=== PATIENT | female | born 1935 | race Caucasian/White ===

== ENCOUNTER 2016-06-18 16:58 | Emergency (ER) | payer OTHER ==
[~2016-06-18] VITALS: Ht 167.6 cm; Wt 77.0 kg
[~2016-06-18 16:58] MED LIST: ADVA250A INH; ARIP2 PO; CO Q200C3 PO; CORE25TA PO; CYMB30CA PO; ECOT81TA2 PO; FURO20TA PO; ISOS60 PO; LINA290C PO; LORTA10 PO; MEDR4PAK3 PO; NITR0.4S SL; POTA-267 PO; ROPI.25 PO; ROSU20 PO; TEKT300T PO; TEMA15 PO; VALI5TAB PO
[2016-06-18 17:15] VITALS: BP 149/70; PULSE 74; RESP 18; TEMP 98.5; O2SAT 98
--- NOTE | 2016-06-18 17:20 | PD ---
HPI Chief Complaint: psych Time Seen by Provider: 17:19 Travel History International Travel<30 days: No Contact w/Intl Traveler<30days: No Traveled to known affect area: No History of Present Illness HPI 80-year-old female with history of CVA, CAD, stent placement 4, hypertension, COPD, presents to emergency department under a Anders act for psychiatric evaluation. Patient states that she lost her in February and has been significantly depressed since then. She resides with her son. She states that she gets very lonely and wants him home. She contacted him today asking him to come home and he became angry. She states that they had an argument and he misunderstood her when she said she just wanted it all to end. She claims that he assumed she wanted to hurt himself. She states she was just tired of the fighting. She denies any suicidal homicidal ideations. States that she does not take anything for her depression. She has no other symptoms to report at this time. [facility] Past Medical History Arthritis: Yes Asthma: Yes Autoimmune Disease: No Blood Disorders: No Anxiety: Yes Depression: Yes Heart Rhythm Problems: No Cancer: No Cardiac Catheterization: Yes Cardiovascular Problems: Yes (HTN) High Cholesterol: Yes Chemotherapy: No Chest Pain: Yes Congestive Heart Failure: No COPD: Yes Coronary Artery Disease: Yes Diabetes: No Diminished Hearing: No Endocrine: No Gastrointestinal Disorders: Yes GERD: Yes Genitourinary: No Headaches: No Hiatal Hernia: Yes Hypertension: Yes Immune Disorder: No Implanted Vascular Access Dvce: No Kidney Stones: No Musculoskeletal: Yes Neurologic: Yes (TREMORS) Psychiatric: No Reproductive: No Respiratory: Yes Immunizations Current: No Migraines: No Myocardial Infarction: Yes (2011) Radiation Therapy: No Renal Failure: No Seizures: No Sickle Cell Disease: No Sleep Apnea: No Thyroid Disease: No Ulcer: No PNEUMOCCOCAL Vaccine (Year): 2 Menopausal: Yes Past Surgical History Abdominal Surgery: No AICD: No Arteriovenous Shunt: No Body Medical Devices: HEART START Cardiac Surgery: Yes (CARDIAC STENT-2005 / STENTS x4 JULY 2011) Coronary Artery Bypass Graft: No Coronary Stent: Yes Ear Surgery: No Endocrine Surgery: No Eye Surgery: Yes (BILAT. CATARACT REMOVAL) Genitourinary Surgery: No Gynecologic Surgery: Yes (HYSTERCTOMY ) Hysterectomy: Yes (PARTIAL THEN COMPLETE) Insulin Pump: No Joint Replacement: No Neurologic Surgery: No Oral Surgery: No Pacemaker: No Thoracic Surgery: No Other Surgery: Yes (BREAST BX) Social History Alcohol Use: No Tobacco Use: No Substance Use: No Allergies-Medications (Allergen,Severity, Reaction): Coded Allergies: E-Mycin (Verified Allergy, Severe, RASH, 06/18/16) Reglan (Verified Allergy, Severe, Rash, 06/18/16) Sulfa (Verified Allergy, Severe, RASH, 06/18/16) Zanaflex (Verified Allergy, Severe, Rash, 06/18/16) Codeine (Verified Allergy, Unknown, 06/18/16) PT DOESNT KNOW WHY, BECAUSE SHE DOES NOT KNOW WHAT IT IS, IS ON HYDROCODONE AND LORTABS AT HOME Zocor (Verified Allergy, Unknown, 06/18/16) Uncoded Allergies: hydrocolliod dressing (Adverse Reaction, Severe, 05/12/13) Reported Meds & Prescriptions Reported Meds & Active Scripts Active Reported Restoril (Temazepam) 15 Mg Cap 15 Mg PO HS PRN Crestor (Rosuvastatin Calcium) 10 Mg Tab 10 Mg PO HS Requip (Ropinirole HCl) 0.25 Mg Tab 0.25 Mg PO HS Klor-Con 10 (Potassium Chloride) 10 Meq Tab 10 Meq PO DAILY Nitrostat SL (Nitroglycerin) 0.4 Mg Subl 0.4 Mg SL DIRECTED PRN 1 tablet under the tongue as needed for chest pain. Repeat every 5 minutes for a total of 3 DOSES or call 911 if NO relief. Linzess (Linaclotide) 290 Mcg Cap 290 Mcg PO DAILY Isosorbide Mononitrate ER (Isosorbide Mononitrate) 60 Mg Tab 60 Mg PO DAILY Lasix (Furosemide) 20 Mg Tab 20 Mg PO DAILY Breo Ellipta Inh (Fluticasone/Vilanterol) 100-25 Mcg/Act Inh 1 Puff INH DAILY Use daily at the same time. Coreg (Carvedilol) 25 Mg Tab 25 Mg PO DAILY Aspirin Adult Low Strength (Aspirin) 81 Mg Tabdr 243 Mg PO DAILY Review of Systems Except as stated in HPI: all other systems reviewed are Neg Physical Exam Narrative GENERAL: Well-nourished elderly female patient, tearful but in no acute distress SKIN: Focused skin assessment warm/dry. HEAD: Atraumatic. Normocephalic. EYES: Pupils equal and round. No scleral icterus. No injection or drainage. ENT: No nasal bleeding or discharge. Mucous membranes pink and moist. NECK: Trachea midline. No JVD. CARDIOVASCULAR: Regular rate and rhythm. No murmur appreciated. RESPIRATORY: No accessory muscle use. Clear to auscultation. Breath sounds equal bilaterally. GASTROINTESTINAL: Abdomen soft, non-tender, nondistended. Hepatic and splenic margins not palpable. MUSCULOSKELETAL: No obvious deformities. No clubbing. No cyanosis. No edema. NEUROLOGICAL: Awake and alert. No obvious cranial nerve deficits. Motor grossly within normal limits. Normal speech. PSYCHIATRIC: Appropriate mood and affect; insight and judgment normal. Data Data Last Documented VS Vital Signs Date Time Temp Pulse Resp B/P Pulse Ox O2 Delivery O2 Flow Rate FiO2 06/18/16 19:24 98.4 65 16 133/72 97 Room Air Orders Complete Blood Count With Diff (06/18/16 17:29) Basic Metabolic Panel (Bmp) (06/18/16 17:29) Urinalysis - C+S If Indicated (06/18/16 17:29) Psych Screen (06/18/16 17:29) Drug Screen, Random Urine (06/18/16 17:29) Alcohol (Ethanol) (06/18/16 17:29) Potassium Chloride (Kcl) (06/18/16 19:15) Labs Laboratory Tests Test 06/18/16 06/18/16 17:40 19:05 White Blood Count 6.0 TH/MM3 Red Blood Count 4.57 MIL/MM3 Hemoglobin 13.6 GM/DL Hematocrit 41.1 % Mean Corpuscular Volume 89.9 FL Mean Corpuscular Hemoglobin 29.8 PG Mean Corpuscular Hemoglobin 33.2 % Concent Red Cell Distribution Width 13.8 % Platelet Count 233 TH/MM3 Mean Platelet Volume 7.4 FL Neutrophils (%) (Auto) 83.9 % Lymphocytes (%) (Auto) 12.4 % Monocytes (%) (Auto) 3.2 % Eosinophils (%) (Auto) 0.3 % Basophils (%) (Auto) 0.2 % Neutrophils # (Auto) 5.0 TH/MM3 Lymphocytes # (Auto) 0.7 TH/MM3 Monocytes # (Auto) 0.2 TH/MM3 Eosinophils # (Auto) 0.0 TH/MM3 Basophils # (Auto) 0.0 TH/MM3 CBC Comment DIFF FINAL Differential Comment Sodium Level 139 MEQ/L Potassium Level 3.2 MEQ/L Chloride Level 101 MEQ/L Carbon Dioxide Level 29.7 MEQ/L Anion Gap 8 MEQ/L Blood Urea Nitrogen 29 MG/DL Creatinine 1.04 MG/DL Estimat Glomerular Filtration 51 ML/MIN Rate Random Glucose 140 MG/DL Calcium Level 9.1 MG/DL Ethyl Alcohol Level LESS THAN 3 MG/DL Urine Color YELLOW Urine Turbidity CLEAR Urine pH 6.0 Urine Specific [place] 1.011 Urine Protein NEG mg/dL Urine Glucose (UA) NEG mg/dL Urine Ketones NEG mg/dL Urine Occult Blood NEG Urine Nitrite NEG Urine Bilirubin NEG Urine Urobilinogen LESS THAN 2.0 MG/DL Urine Leukocyte Esterase NEG Urine RBC 1 /hpf Urine WBC LESS THAN 1 /hpf Urine Squamous Epithelial 1 /hpf Cells Urine Hyaline Casts 5 /lpf Microscopic Urinalysis Comment CULT NOT INDICATED Urine Opiates Screen NEG Urine Barbiturates Screen NEG Urine Amphetamines Screen NEG Urine Benzodiazepines Screen NEG Urine Cocaine Screen NEG Urine Cannabinoids Screen NEG MDM Medical Decision Making Medical Screen Exam Complete: Yes Emergency Medical Condition: Yes Medical Record Reviewed: Yes Differential Diagnosis Mood disorder versus personality disorder versus adjustment reaction disorder Narrative Course 80 year-old female presents to the emergency department under a Anders act for psychiatric evaluation. Patient appears without distress. She is cheerful and verbalizes depression following her 's in February of this year. She denies suicidal or homicidal ideations. CBC is without acute concern. BMP is with hypokalemia 3.2. This is repleted here in the emergency department. BUN is 29, creatinine 1.04. Patient is encouraged to take by mouth fluids. She is tolerating this. Urinalysis is unremarkable. Patient states she is currently being treated for UTI and has one dose of antibiotics left. EtOH is less than 3. Toxicology is pending. Patient is medically cleared to undergo psychiatric screening for further evaluation and disposition. 2119 Psychiatric screen is complete. Pt is increasingly anxious and restless. I discussed with Dr. Puentes; old EKG is reviewed. Pt will be given haldol IM. Diagnosis Primary Impression: Adjustment disorder with mixed anxiety and depressed mood Condition: Stable Whitney Marinelli Jun 18, 2016 17:20
[2016-06-18 17:25] VITALS: BP 149/70; PULSE 67; RESP 18; O2SAT 98
[2016-06-18 17:49] LABS: BASOPHIL % 0.2 % (0.0-2.0); EOSINOPHIL % 0.3 % (0.0-4.0); HEMATOCRIT 41.1 % (35.0-46.0); HEMO FLAGS DIFF FINAL; LYMPH % 12.4 % (9.0-44.0); LYMPHOCYTE # 0.7 TH/MM3 (1.0-4.8); MEAN CELL VOLUME 89.9 FL (80.0-100.0); MEAN CORPUSCULAR HEMOGLOBIN 29.8 PG (27.0-34.0); MEAN CORPUSCULAR HGB CONC 33.2 % (32.0-36.0); MONO % 3.2 % (0.0-8.0); NEUT % 83.9 % (16.0-70.0); PLATELET COUNT 233 TH/MM3 (150-450); RED BLOOD COUNT 4.57 MIL/MM3 (4.00-5.30); RED CELL DISTRIBUTION WIDTH 13.8 % (11.6-17.2)
[2016-06-18] MEDS ORDERED: LINA290C PO (18:07)
[2016-06-18] MEDS ORDERED: REST15CA PO (18:07)
[2016-06-18] MEDS ORDERED: ROPI.25 PO (18:07)
[2016-06-18] MEDS ORDERED: POTA-243 PO (18:07)
[2016-06-18] MEDS ORDERED: FLUT1INH INH (18:07)
[2016-06-18] MEDS ORDERED: NITR0.4S SL (18:07)
[2016-06-18] MEDS ORDERED: ASPI1TAB91 PO (18:07)
[2016-06-18] MEDS ORDERED: CORE25TA PO (18:07)
[2016-06-18] MEDS ORDERED: FURO1TAB62 PO (18:07)
[2016-06-18] MEDS ORDERED: ISOS60TA PO (18:07)
[2016-06-18] MEDS ORDERED: ROSU10 PO (18:07)
[2016-06-18 18:14] LABS: ANION GAP 8 MEQ/L (5-15); BICARBONATE 29.7 MEQ/L (21.0-32.0); BLOOD UREA NITROGEN 29 MG/DL (7-18); CHLORIDE 101 MEQ/L (98-107); GLOMERULAR FILTRATION RATE 51 ML/MIN (>89); POTASSIUM 3.2 MEQ/L (3.5-5.1); SODIUM (NA) 139 MEQ/L (136-145)
[2016-06-18] MEDS ORDERED: POTASSIUM CHLORIDE 20 MEQ CONTROLLED RELEASE TAB PO ONE (19:15)
[2016-06-18 19:24] VITALS: BP 133/72; PULSE 65; RESP 16; TEMP 98.4; O2SAT 97
[2016-06-18 19:42] LABS: AMPHETAMINE, URINE NEG (NEG); BARBITURATES, URINE NEG (NEG); COCAINE, URINE NEG (NEG)
[2016-06-18 19:50] LABS: BLOOD, URINE NEG (NEG); COMMENT (UR) CULT NOT INDICATED; CULTURE IF INDICATED CULT NOT INDICATED; GLUCOSE,URINE NEG (NEG); HYALINE CAST, URINE 5 /lpf (RARE); KETONE, URINE NEG (NEG); NITRITE,URINE NEG (NEG); SQUAMOUS EPITHELIAL CELL URINE 1 /hpf (0-5); URINE COLOR YELLOW (YELLW/STRAW)
[2016-06-18] MEDS ORDERED: HALOPERIDOL LACTATE 5 MG/ML AMP IM ONE (21:30)
[2016-06-18] MEDS ORDERED: TEMAZEPAM 15 MG CAP PO ONE (21:45)
[2016-06-19 05:58] VITALS: BP 129/72; PULSE 80; RESP 18; O2SAT 97
[2016-06-19 07:28] VITALS: BP 158/76; PULSE 61; RESP 20; TEMP 98.7; O2SAT 99
--- NOTE | 2016-06-19 12:05 | PD ---
Data Data Last Documented VS Vital Signs Date Time Temp Pulse Resp B/P Pulse Ox O2 Delivery O2 Flow Rate FiO2 06/19/16 07:28 98.7 61 20 158/76 99 Room Air Orders Complete Blood Count With Diff (06/18/16 17:29) Basic Metabolic Panel (Bmp) (06/18/16 17:29) Urinalysis - C+S If Indicated (06/18/16 17:29) Psych Screen (06/18/16 17:29) Drug Screen, Random Urine (06/18/16 17:29) Alcohol (Ethanol) (06/18/16 17:29) Potassium Chloride (Kcl) (06/18/16 19:15) Haloperidol Inj (Haldol Inj) (06/18/16 21:30) Temazepam (Restoril) (06/18/16 21:45) Diet Regular Basic (06/19/16 Breakfast) Labs Laboratory Tests Test 06/18/16 06/18/16 17:40 19:05 White Blood Count 6.0 TH/MM3 Red Blood Count 4.57 MIL/MM3 Hemoglobin 13.6 GM/DL Hematocrit 41.1 % Mean Corpuscular Volume 89.9 FL Mean Corpuscular Hemoglobin 29.8 PG Mean Corpuscular Hemoglobin 33.2 % Concent Red Cell Distribution Width 13.8 % Platelet Count 233 TH/MM3 Mean Platelet Volume 7.4 FL Neutrophils (%) (Auto) 83.9 % Lymphocytes (%) (Auto) 12.4 % Monocytes (%) (Auto) 3.2 % Eosinophils (%) (Auto) 0.3 % Basophils (%) (Auto) 0.2 % Neutrophils # (Auto) 5.0 TH/MM3 Lymphocytes # (Auto) 0.7 TH/MM3 Monocytes # (Auto) 0.2 TH/MM3 Eosinophils # (Auto) 0.0 TH/MM3 Basophils # (Auto) 0.0 TH/MM3 CBC Comment DIFF FINAL Differential Comment Sodium Level 139 MEQ/L Potassium Level 3.2 MEQ/L Chloride Level 101 MEQ/L Carbon Dioxide Level 29.7 MEQ/L Anion Gap 8 MEQ/L Blood Urea Nitrogen 29 MG/DL Creatinine 1.04 MG/DL Estimat Glomerular Filtration 51 ML/MIN Rate Random Glucose 140 MG/DL Calcium Level 9.1 MG/DL Ethyl Alcohol Level LESS THAN 3 MG/DL Urine Color YELLOW Urine Turbidity CLEAR Urine pH 6.0 Urine Specific [place] 1.011 Urine Protein NEG mg/dL Urine Glucose (UA) NEG mg/dL Urine Ketones NEG mg/dL Urine Occult Blood NEG Urine Nitrite NEG Urine Bilirubin NEG Urine Urobilinogen LESS THAN 2.0 MG/DL Urine Leukocyte Esterase NEG Urine RBC 1 /hpf Urine WBC LESS THAN 1 /hpf Urine Squamous Epithelial 1 /hpf Cells Urine Hyaline Casts 5 /lpf Microscopic Urinalysis Comment CULT NOT INDICATED Urine Opiates Screen NEG Urine Barbiturates Screen NEG Urine Amphetamines Screen NEG Urine Benzodiazepines Screen NEG Urine Cocaine Screen NEG Urine Cannabinoids Screen NEG MDM Supervised Visit with GALDINO: No Narrative Course I was asked by the psych screener to consider lifting this patient's Anders act. Apparently the psychiatrist has been very busy today and is unlikely to get to her today. The patient did present on Anders act which states that the patient made suicidal statements to her son who lives with her. I've talked with the patient and she adamantly denies suicidal ideation at this time. She states she did not say anything to her son. Her only complaint at this time as she has some mild back pain which she states is chronic would like some Tylenol. I talked with the son Harvinder who states that the patient making threats to herself on the order of "it would be better off if I just wasn't here". She is been very depressed since the of her in February after 60 years of marriage. The son uses phrases like "I'm afraid that when I come home one day she'll have hurt herself", and "I'm very concerned that she might hurt herself" . He then uses phrases like "she is Sabianist and it is a sin and I'm afraid for her as this is an unforgivable sin". He also says "I hope that because she is Sabianist she would never hurt herself" He remains quite concerned that the patient may be a threat to herself. Unfortunate conversation was interrupted by a critically ill patient. However I have enough information to defer lifting of the Anders act until she is evaluated by psychiatry. She remains medically stable for psychiatric evaluation and disposition. Diagnosis Primary Impression: Adjustment disorder with mixed anxiety and depressed mood Condition: J Luis Fuentes MD Jun 19, 2016 12:05
[2016-06-19] MEDS ORDERED: ACETAMINOPHEN 500 MG CPLT PO ONE (12:15)
[2016-06-19 12:34] VITALS: BP 180/81; PULSE 70; RESP 16; TEMP 97.9; O2SAT 96
--- NOTE | 2016-06-19 15:47 | PD.CONS ---
Provisional Diagnosis Admission Date [place] I. Adjustment disorder with depressed mood [place] II. Deferred [place] III. COPD, CVA [place] IV. Conflicts with family members [place] V. 55 History of Present Illness Service Psychiatry Consult Requested By Primary Care Physician Lauri Cannon III, MD HPI The patient is a 80-year-old woman, domicile with her son in [place], without any previous psychiatric history, no previous suicidal attempts , no previous hospitalizations, with medical history of CVA, CAD, stent placement 4, hypertension, COPD, presents to emergency department under a Anders act for psychiatric evaluation. Patient states that she lost her in February and has been significantly depressed since then. She states that she gets very lonely and wants him home. She contacted him today asking him to come home and he became angry. She states that they had an argument and he misunderstood her when she said she just wanted it all to end. She claims that he assumed she wanted to hurt himself, but she did not mean that. She states she was just tired of the fighting with her son. At this moment the patient denies depressive symptoms, she is in a good spirit, reports good mood, denies anxiety denies joseline, denies perceptual disturbances. She denies suicidal or homicidal ideation, she denies visual and auditory hallucinations. Patient is fully oriented 3, logical, coherent and relevant. No agitation or aggressive behavior reported in the ER. Patient denies the use of alcohol and illicit drugs.. Review of Systems Constitutional: DENIES: Diaphoretic episodes, Fatigue, Fever, Weight gain, Weight loss, Chills, Dizziness, Change in appetite, Night Sweats Endocrine: DENIES: Abnorml menstrual pattern, Heat/cold intolerance, Polydipsia , Polyuria, Polyphagia Eyes: DENIES: Blurred vision, Diplopia, Eye inflammation, Eye pain, Vision loss , Photosensitivity, Double Vision Ears, nose, mouth, throat: DENIES: Tinnitus, Hearing loss, Vertigo, Nasal discharge, Oral lesions, Throat pain, Hoarseness, Ear Pain, Running Nose, Epistaxis, Sinus Pain, Toothache, Odynophagia Respiratory: DENIES: Apneas, Cough, Snoring, Wheezing, Hemoptysis, Sputum production, Shortness of breath Cardiovascular: DENIES: Chest pain, Palpitations, Syncope, Dyspnea on Exertion , PND, Lower Extremity Edema, Orthopnea, Claudication Gastrointestinal: DENIES: Abdominal pain, Black stools, Bloody stools, Constipation, Diarrhea, Nausea, Vomiting, Difficulty Swallowing, Anorexia Genitourinary: DENIES: Abnormal vaginal bleeding, Dysmenorrhea, Dyspareunia, Sexual dysfunction, Urinary frequency, Urinary incontinence, Urgency, Hematuria , Dysuria, Nocturia, Vaginal discharge Musculoskeletal: DENIES: Joint pain, Muscle aches, Stiffness, Joint Swelling, Back pain, Neck pain Integumentary: DENIES: Abnormal pigmentation, Pruritus, Rash, Nail changes, Breast masses, Breast skin changes, Nipple discharge Hematologic/lymphatic: DENIES: Bruising, Lymphadenopathy Immunologic/allergic: DENIES: Eczema, Urticaria Neurologic: DENIES: Abnormal gait, Headache, Localized weakness, Paresthesias, Seizures, Speech Problems, Tremor, Poor Balance Psychiatric: DENIES: Anxiety, Confusion, Mood changes, Depression, Hallucinations, Agitation, Suicidal Ideation, Homicidal Ideation, Delusions Past Family Social History Coded Allergies: E-Mycin (Verified Allergy, Severe, RASH, 06/18/16) Reglan (Verified Allergy, Severe, Rash, 06/18/16) Sulfa (Verified Allergy, Severe, RASH, 06/18/16) Zanaflex (Verified Allergy, Severe, Rash, 06/18/16) Codeine (Verified Allergy, Unknown, 06/18/16) PT DOESNT KNOW WHY, BECAUSE SHE DOES NOT KNOW WHAT IT IS, IS ON HYDROCODONE AND LORTABS AT HOME Zocor (Verified Allergy, Unknown, 06/18/16) Uncoded Allergies: hydrocolliod dressing (Adverse Reaction, Severe, 05/12/13) Reported Medications Temazepam (Restoril)15 Mg Cap15 Mg PO HS PRN (INSOMNIA) #30 CAP Ref 0 06/18/16 Rosuvastatin (Crestor)10 Mg Tab10 Mg PO HS #30 TAB Ref 0 06/18/16 Ropinirole (Requip)0.25 Mg Tab0.25 Mg PO HS #30 TAB Ref 0 06/18/16 Potassium Chloride ER (Klor-Con 10)10 Meq Tab10 Meq PO DAILY #30 TAB Ref 0 06/18/16 Nitroglycerin SL (Nitrostat SL)0.4 Mg Subl0.4 Mg SL DIRECTED PRN (CHEST PAIN ) #100 TAB.SL Ref 0 1 tablet under the tongue as needed for chest pain. Repeat every 5 minutes for a total of 3 DOSES or call 911 if NO relief. 06/18/16 Linaclotide (Linzess)290 Mcg [id number] Mcg PO DAILY Ref 0 06/18/16 Isosorbide Mononitrate ER 60 Mg Tab60 Mg PO DAILY #30 TAB Ref 0 06/18/16 Furosemide (Lasix)20 Mg Tab20 Mg PO DAILY #30 TAB Ref 0 06/18/16 Fluticasone-Vilanterol Inh (Breo Ellipta Inh)100-25 Mcg/Act Inh1 Puff INH DAILY #1 INHALER Ref 0 Use daily at the same time. 06/18/16 Carvedilol (Coreg)25 Mg Tab25 Mg PO DAILY #30 TAB Ref 0 06/18/[address] (Aspirin Adult Low Strength)81 Mg [id number] Mg PO DAILY 06/18/16 Family History Patient denies family psychiatric his Social History Patient was born in [place], she lives in [place] with her son, she is , supported by Social Security her son, highest level of education is college Physical Exam Vital Signs Vital Signs Date Time Temp Pulse Resp B/P Pulse Ox O2 Delivery O2 Flow Rate FiO2 06/19/16 12:34 97.9 70 16 180/81 96 Room Air Mental Status Examination Speech: Unremarkable Orientation: x3 Thought Process: Logical Thought Content: Unremarkable Hallucination Type: None Suicidal Ideation: No Previous Suicide Attempts: No Homicidal Ideation: No Previous Homicide Attempts: No Judgment: WNL Affect: Good Mood: Appropriate Motor Activity: Normal gait Assessment & Plan Problem List: (1) Adjustment disorder with depressed mood Assessment & Plan: On somatic evaluation the patient does not present any evidence of depression, anxiety, joseline or perceptual disturbances, patient denies suicidal or homicidal ideation, patient denies visual and auditory hallucinations. Patient denies suicidal statements, her son contacted by phone admitted he may be over concerned. Extensive support, motivation psycho education provided. Anders act will be lifted. Patient will be discharged back home with her some. ICD Code: F43.21 Assessment & Plan Estimated LOS: José Miguel Pollock MD Jun 19, 2016 15:47
== END 2016-06-19 15:30 | disposition home or self-care (01) ==
LOC: NEPE 16:58 → NEPJ 06-19 15:30
DX: F43.23 Adjustment disorder with mixed anxiety and depressed mood (principal); I10 Essential (primary) hypertension; E78.00 Pure hypercholesterolemia, unspecified; J44.9 Chronic obstructive pulmonary disease, unspecified; I25.2 Old myocardial infarction; J45.909 Unspecified asthma, uncomplicated; M54.9 Dorsalgia, unspecified
CPT/HCPCS: 80048; 80307; 81001; 85025; 99284

== ENCOUNTER 2017-07-24 11:57 | Emergency (ER) | payer OTHER ==
[~2017-07-24] VITALS: Ht 160 cm; Wt 53.0 kg
[~2017-07-24 11:57] MED LIST changes: -ADVA250A INH; -ARIP2 PO; +ASPI81TA16 PO; -CO Q200C3 PO; -CYMB30CA PO; -ECOT81TA2 PO; +FLUT1INH INH; +FURO1TAB62 PO; -FURO20TA PO; -ISOS60 PO; +ISOS60TA PO; +KLOR10TA PO; -LORTA10 PO; -MEDR4PAK3 PO; -POTA-267 PO; +REST15CA PO; +ROSU10 PO; -ROSU20 PO; -TEKT300T PO; -TEMA15 PO; -VALI5TAB PO
[2017-07-24 12:02] VITALS: BP 177/102; PULSE 66; RESP 20; TEMP 98.2; O2SAT 98
[2017-07-24] MEDS ORDERED: LEVO25TA4 PO (12:20)
[2017-07-24] MEDS ORDERED: PRAM0.12 PO (12:20)
[2017-07-24] MEDS ORDERED: ROSU1TAB8 PO (12:20)
[2017-07-24] MEDS ORDERED: CARV6.252 PO (12:20)
[2017-07-24] MEDS ORDERED: SENN8.6T36 PO (12:20)
[2017-07-24] MEDS ORDERED: FURO40TA PO (12:20)
[2017-07-24] MEDS ORDERED: methylPREDNISolone SOD SUCC 125 MG/2 ML VIAL IV PUSH ONE (12:45)
[2017-07-24] MEDS ORDERED: SODIUM CHLORIDE 0.9% FLUSH 10 ML FLUSH IVF PRN (12:45)
[2017-07-24] MEDS ORDERED: RESP: ALBUTEROL 2.5 MG/IPRATROPIUM 0.5 MG NEB (SCH) NEB ONE (12:45)
--- NOTE | 2017-07-24 12:55 | PD ---
HPI Chief Complaint: Chest Pain Time Seen by Provider: 12:35 Travel History International Travel<30 days: No Contact w/Intl Traveler<30days: No Traveled to known affect area: No History of Present Illness HPI The patient was seen and examined in the presence of the nurse. She complains of generalized weakness. Duration is 2 days. Severity is moderate. She also has some dyspnea. She reports history of COPD and asthma. She has inhaler and nebulizer at home but did not use either today. Denies fever or chest pain. No productive cough. Patient reports that she never smoked. No alleviating factors. No exacerbating factors. PFSH Past Medical History Arthritis: Yes Asthma: Yes Autoimmune Disease: No Blood Disorders: No Anxiety: Yes Depression: Yes Heart Rhythm Problems: No Cancer: No Cardiac Catheterization: Yes Cardiovascular Problems: Yes ([place]) High Cholesterol: Yes Chemotherapy: No Chest Pain: Yes Congestive Heart Failure: No COPD: Yes Coronary Artery Disease: Yes Diabetes: No Diminished Hearing: No Endocrine: No Gastrointestinal Disorders: Yes GERD: Yes Genitourinary: No Headaches: No Hiatal Hernia: Yes Hypertension: Yes Immune Disorder: No Implanted Vascular Access Dvce: No Kidney Stones: No Musculoskeletal: Yes Neurologic: Yes (TREMORS) Psychiatric: No Reproductive: No Respiratory: Yes (COPD) Immunizations Current: No Migraines: No Myocardial Infarction: Yes (2011) Radiation Therapy: No Renal Failure: No Seizures: No Sickle Cell Disease: No Sleep Apnea: No Thyroid Disease: No Ulcer: No Influenza Vaccination: Yes PNEUMOCCOCAL Vaccine (Year): 2 ?: Not Menopausal: Yes Past Surgical History Abdominal Surgery: No AICD: No Arteriovenous Shunt: No Body Medical Devices: HEART START Cardiac Surgery: Yes (CARDIAC STENT-2005 / STENTS x4 JULY 2011) Coronary Artery Bypass Graft: No Coronary Stent: Yes Ear Surgery: No Endocrine Surgery: No Eye Surgery: Yes (BILAT. CATARACT REMOVAL) Genitourinary Surgery: No Gynecologic Surgery: Yes (HYSTERCTOMY ) Hysterectomy: Yes (PARTIAL THEN COMPLETE) Insulin Pump: No Joint Replacement: No Neurologic Surgery: No Oral Surgery: No Pacemaker: No Thoracic Surgery: No Other Surgery: Yes (BREAST BX) Family History Family Myocardial Infarction: Yes Social History Alcohol Use: No Tobacco Use: No Substance Use: No Allergies-Medications (Allergen,Severity, Reaction): Coded Allergies: Sulfa (Sulfonamide Antibiotics) (Unverified Allergy, Severe, RASH, 10/04/16 ) erythromycin base (Unverified Allergy, Severe, RASH, 10/04/16) metoclopramide (Unverified Allergy, Severe, Rash, 10/04/16) tizanidine (Unverified Allergy, Severe, Rash, 10/04/16) codeine (Unverified Allergy, Unknown, 10/04/16) PT DOESNT KNOW WHY, BECAUSE SHE DOES NOT KNOW WHAT IT IS, IS ON HYDROCODONE AND LORTABS AT HOME simvastatin (Unverified Allergy, Unknown, 10/04/16) Uncoded Allergies: hydrocolliod dressing (Adverse Reaction, Severe, 05/12/13) Reported Meds & Prescriptions Reported Meds & Active Scripts Active Reported Senna-Tabs (Sennosides) 8.6 Mg Tab 8.6 Mg PO DAILY Pramipexole (Pramipexole Dihydrochloride) 0.125 Mg Tab 0.125 Mg PO BID Levothyroxine (Levothyroxine Sodium) 25 Mcg Tab 25 Mcg PO DAILY Rosuvastatin (Rosuvastatin Calcium) 20 Mg Tab 20 Mg PO DAILY Furosemide 40 Mg Tab 40 Mg PO BID Carvedilol 6.25 Mg Tab 6.25 Mg PO BID Restoril (Temazepam) 15 Mg Cap 15 Mg PO HS PRN Klor-Con 10 (Potassium Chloride) 10 Meq Tab 10 Meq PO DAILY Nitrostat SL (Nitroglycerin) 0.4 Mg Subl 0.4 Mg SL DIRECTED PRN 1 tablet under the tongue as needed for chest pain. Repeat every 5 minutes for a total of 3 DOSES or call 911 if NO relief. Linzess (Linaclotide) 290 Mcg Cap 290 Mcg PO DAILY Isosorbide Mononitrate ER (Isosorbide Mononitrate) 60 Mg Tab 60 Mg PO DAILY Breo Ellipta Inh (Fluticasone/Vilanterol) 100-25 Mcg/Act Inh 1 Puff INH DAILY Use daily at the same time. Aspirin Adult Low Strength (Aspirin) 81 Mg Tabdr 243 Mg PO DAILY Review of Systems General / Constitutional: No: Fever Eyes: No: Visual changes HENT: No: Headaches Cardiovascular: No: Chest Pain or Discomfort Respiratory: Positive: Cough, Shortness of Breath, Wheezing Gastrointestinal: No: Abdominal Pain Genitourinary: No: Dysuria Musculoskeletal: Positive: Weakness, No: Pain Skin: No Rash Neurologic: Positive: Weakness Psychiatric: No: Depression Endocrine: No: Polydipsia Hematologic/Lymphatic: No: Easy Bruising Physical Exam Narrative GENERAL: Thin elderly well-developed patient with weakness and dyspnea . SKIN: Focused skin assessment reveals no rash and nodules. Skin is Warm and dry. HEAD: Atraumatic. Normocephalic. EYES: Pupils equal and round. No scleral icterus. No injection or drainage. ENT: No nasal bleeding or discharge. Mucous membranes pink and moist. NECK: Trachea midline. No JVD. CARDIOVASCULAR: Regular rate and rhythm. No murmur appreciated. RESPIRATORY: Some accessory muscle use. Expiratory wheezing and rhonchi diffusely. Breath sounds equal bilaterally. GASTROINTESTINAL: Abdomen soft, non-tender, nondistended. Hepatic and splenic margins not palpable. MUSCULOSKELETAL: No obvious deformities. No clubbing. No cyanosis. No edema. NEUROLOGICAL: Awake and alert. No obvious cranial nerve deficits. Motor grossly within normal limits. Normal speech. PSYCHIATRIC: Appropriate mood and affect; insight and judgment normal. Data Data Last Documented VS Vital Signs Date Time Temp Pulse Resp B/P (MAP) Pulse Ox O2 Delivery O2 Flow Rate FiO2 07/24/17 13:47 65 18 191/93 (125) 99 Nasal Cannula 2.00 07/24/17 12:02 98.2 Orders Orders Complete Blood Count With Diff (07/24/17 12:42) Basic Metabolic Panel (Bmp) (07/24/17 12:42) Iv Access Insert/Monitor (07/24/17 12:42) Electrocardiogram (07/24/17 12:42) Ecg Monitoring (07/24/17 12:42) Oximetry (07/24/17 12:42) Chest, Single Ap (07/24/17 12:42) Sodium Chloride 0.9% Flush (Ns Flush) (07/24/17 12:45) Methylprednisolone So Succ Inj (Solumedr (07/24/17 12:45) Albuterol-Ipratropium Neb (Duoneb Neb) (07/24/17 12:45) Albuterol-Ipratropium Neb (Duoneb Neb) (07/24/17 12:45) Urinalysis - C+S If Indicated (07/24/17 12:55) Clonidine (Catapres) (07/24/17 13:00) Potassium Chloride Eff (K-Lyte Cl Eff) (07/24/17 14:30) Labs Laboratory Tests Test 07/24/17 12:50 07/24/17 13:10 White Blood Count 5.4 TH/MM3 Red Blood Count 4.04 MIL/MM3 Hemoglobin 12.7 GM/DL Hematocrit 37.0 % Mean Corpuscular Volume 91.7 FL Mean Corpuscular Hemoglobin 31.4 PG Mean Corpuscular Hemoglobin Concent 34.3 % Red Cell Distribution Width 12.6 % Platelet Count 191 TH/MM3 Mean Platelet Volume 8.0 FL Neutrophils (%) (Auto) 48.2 % Lymphocytes (%) (Auto) 29.8 % Monocytes (%) (Auto) 7.5 % Eosinophils (%) (Auto) 13.4 % Basophils (%) (Auto) 1.1 % Neutrophils # (Auto) 2.6 TH/MM3 Lymphocytes # (Auto) 1.6 TH/MM3 Monocytes # (Auto) 0.4 TH/MM3 Eosinophils # (Auto) 0.7 TH/MM3 Basophils # (Auto) 0.1 TH/MM3 CBC Comment DIFF FINAL Differential Comment Blood Urea Nitrogen 9 MG/DL Creatinine 0.68 MG/DL Random Glucose 85 MG/DL Calcium Level 8.9 MG/DL Sodium Level 139 MEQ/L Potassium Level 3.1 MEQ/L Chloride Level 103 MEQ/L Carbon Dioxide Level 27.6 MEQ/L Anion Gap 8 MEQ/L Estimat Glomerular Filtration Rate 83 ML/MIN Urine Color YELLOW Urine Turbidity CLEAR Urine pH 8.0 Urine Specific [place] 1.010 Urine Protein NEG mg/dL Urine Glucose (UA) NEG mg/dL Urine Ketones NEG mg/dL Urine Occult Blood NEG Urine Nitrite NEG Urine Bilirubin NEG Urine Urobilinogen 0.2 MG/DL Urine Leukocyte Esterase NEG Urine RBC 0-3 /hpf Urine WBC 0-2 /hpf Urine Bacteria NONE /hpf Microscopic Urinalysis Comment CULT NOT INDICATED MDM Medical Decision Making Medical Screen Exam Complete: Yes Emergency Medical Condition: Yes Medical Record Reviewed: Yes Differential Diagnosis COPD, asthma, pneumonia Narrative Course I have reviewed the patient's electronic medical record. IV placed and labs sent I reviewed her EKG which shows sinus bradycardia without ectopy Patient has accelerated hypertension I am giving her dose of clonidine and will reassess I reviewed her chest x-ray which is normal I gave her 3 nebulizer treatments and IV steroid On recheck she is doing much better. Just a scant residual wheeze but breathing is much better I gave her 5 days of prednisone. She has nebulizer at home. CBC is normal and metabolic studies reveal hypokalemia which is replaced orally here Diagnosis Primary Impression: COPD with acute exacerbation Additional Impressions: Generalized weakness Hypokalemia Additional Instructions: The patient was advised to follow up with their physician and return if they worsen. Med/Other Pt SpecificInfo: Prescription(s) given Scripts Prednisone (Prednisone) 20 Mg Tab 40 MG PO DAILY, #10 TAB 0 Refills Take 40 mg (2 tablets) daily for 5 days Prov: Akshat Knox MD 07/24/17 Disposition: 01 DISCHARGE HOME Condition: Stable Akshat Knox MD Jul 24, 2017 12:55
[2017-07-24] MEDS: RESP: ALBUTEROL 2.5 MG/IPRATROPIUM 0.5 MG NEB (SCH) INH ×2 (12:56→12:57)
[2017-07-24 12:58] VITALS: BP 204/94; PULSE 65; RESP 18; O2SAT 98
[2017-07-24] MEDS ORDERED: cloNIDine HCL 0.1 MG TAB PO ONE (13:00)
[2017-07-24 13:08] LABS: AUTOMATED NEUTROPHIL # 2.6 TH/MM3 (1.8-7.7); BASOPHIL # 0.1 TH/MM3 (0-0.2); BASOPHIL % 1.1 % (0.0-2.0); EOSINOPHIL # 0.7 TH/MM3 (0-0.4); EOSINOPHIL % 13.4 % (0.0-4.0); HEMOGLOBIN 12.7 GM/DL (11.6-15.3); LYMPH % 29.8 % (9.0-44.0); LYMPHOCYTE # 1.6 TH/MM3 (1.0-4.8); MEAN CELL VOLUME 91.7 FL (80.0-100.0); MEAN CORPUSCULAR HEMOGLOBIN 31.4 PG (27.0-34.0); MEAN CORPUSCULAR HGB CONC 34.3 % (32.0-36.0); MONO % 7.5 % (0.0-8.0); MONOCYTE # 0.4 TH/MM3 (0-0.9); NEUT % 48.2 % (16.0-70.0); PLATELET COUNT 191 TH/MM3 (150-450); RED BLOOD COUNT 4.04 MIL/MM3 (4.00-5.30); RED CELL DISTRIBUTION WIDTH 12.6 % (11.6-17.2); WHITE BLOOD COUNT 5.4 TH/MM3 (4.0-11.0)
[2017-07-24 13:18] LABS: CALCIUM 8.9 MG/DL (8.5-10.1)
[2017-07-24 13:19] LABS: BICARBONATE 27.6 MEQ/L (21.0-32.0)
[2017-07-24 13:22] LABS: CREATININE 0.68 MG/DL (0.50-1.00)
[2017-07-24 13:27] LABS: BILIRUBIN, URINE NEG (NEG); BLOOD, URINE NEG (NEG); GLUCOSE,URINE NEG (NEG); KETONE, URINE NEG (NEG); NITRITE,URINE NEG (NEG); URINE COLOR YELLOW (YELLW/STRAW); URINE LEUKOCYTE ESTERASE NEG (NEG)
[2017-07-24 13:37] LABS: RBC, URINE 0-3 /hpf (0-3); WBC, URINE 0-2 /hpf (0-5)
[2017-07-24 13:47] VITALS: BP 191/93; PULSE 65; RESP 18; O2SAT 99
--- NOTE | 2017-07-24 13:55 | RADRPT ---
EXAM DATE: 07/24/2017 1:52 PM EDT AGE/SEX: 81 years / Female INDICATIONS: Short of Breath CLINICAL DATA: This is the patient's initial encounter. Patient reports that signs and symptoms have been present for 1 day and indicates a pain score of 0/10. MEDICAL/SURGICAL HISTORY: Asthma. None. [place] [facility] [place]. . FINDINGS: A single AP view of the chest demonstrates the lungs to be symmetrically aerated without evidence of mass, infiltrate or effusion. The cardiomediastinal contours are unremarkable. 2 level cement augmen tation involving the thoracolumbar junction. Neurostimulator graduated catheters overlie the spine in the mid thoracic region. Osseous structures are intact. CONCLUSION: No acute cardiopulmonary disease. Electronically signed by: Wilfredo Diaz MD 07/24/2017 1:54 PM EDT
[2017-07-24] MEDS ORDERED: PRED20 PO (14:19)
[2017-07-24] MEDS ORDERED: POTASSIUM CHLORIDE 25 MEQ EFFERVESCENT TAB PO ONE (14:30)
[2017-07-24 14:34] VITALS: BP 150/72
--- NOTE | 2017-07-25 17:06 | EKG ---
Date Performed: 07/24/2017 Time Performed: 12:34:45 PTAGE: 81 years EKG: SINUS BRADYCARDIA WITH FIRST DEGREE AV BLOCK BORDERLINE LEFT AXIS DEVIATION MODERATE ST DEP RESSION ABNORMAL ECG INTERPRETATION BASED ON A DEFAULT AGE OF 40 YEARS Since the PREVIOUS TRACING , no significant change noted PREVIOUS TRACIN06/17/2015 03.36 DOCTOR: Keeley San Interpretating Date/Time 07/25/2017 17:03:55
== END 2017-07-24 15:08 | disposition home or self-care (01) ==
LOC: PHED 11:57
DX: J44.1 Chronic obstructive pulmonary disease with (acute) exacerbation (principal); E87.6 Hypokalemia; R53.1 Weakness; R94.31 Abnormal electrocardiogram [ECG] [EKG]; F41.9 Anxiety disorder, unspecified; F32.9 Major depressive disorder, single episode, unspecified; E78.00 Pure hypercholesterolemia, unspecified; I25.10 Atherosclerotic heart disease of native coronary artery without angina pectoris; I10 Essential (primary) hypertension
CPT/HCPCS: 71045; 80048; 81001; 85025; 93005; 94640; 94664; 96374; 99285; J2930

== ENCOUNTER 2017-08-08 11:10 | Emergency (ER) | payer OTHER ==
[~2017-08-08] VITALS: Ht 157.5 cm; Wt 55.0 kg
[~2017-08-08 11:10] MED LIST changes: +CARV6.252 PO; -CORE25TA PO; -FURO1TAB62 PO; +FURO40TA PO; +LEVO25TA4 PO; +PRAM0.12 PO; +PRED20 PO; -ROPI.25 PO; -ROSU10 PO; +ROSU1TAB8 PO; +SENN8.6T36 PO
[2017-08-08 11:20] VITALS: BP 134/79; PULSE 65; PULSE 82; RESP 16; TEMP 98.6; O2SAT 97; O2SAT 99
[2017-08-08 11:37] VITALS: BP 164/92; PULSE 69; RESP 18; O2SAT 99
[2017-08-08] MEDS ORDERED: DIAZ5 PO (12:18)
--- NOTE | 2017-08-08 12:18 | PD ---
HPI Chief Complaint: Chest Pain Time Seen by Provider: 11:56 Travel History International Travel<30 days: No Contact w/Intl Traveler<30days: No Traveled to known affect area: No History of Present Illness HPI The patient was seen and examined in the presence of the nurse. This patient complains of chest pain. Location is center sternum. She has a vague pressure. Started 4 AM this morning. She took 2 sublingual nitroglycerin. It seems to her that they helped a bit. They did not totally take away the pain. It lasted about 5 minutes afterwards and then slowly resolved. She cannot recall the last time she had stress testing or catheterization. She has history of 4 cardiac stents. She saw her profile shaper operator 6 weeks ago and things were going well at that point. No exacerbating factors. Symptoms were somewhat alleviated by sublingual nitro PFSH Past Medical History Arthritis: Yes Asthma: Yes Autoimmune Disease: No Blood Disorders: No Anxiety: Yes Depression: Yes Heart Rhythm Problems: No Cancer: No Cardiac Catheterization: Yes Cardiovascular Problems: Yes High Cholesterol: Yes Chemotherapy: No Chest Pain: Yes Congestive Heart Failure: No COPD: Yes Coronary Artery Disease: Yes Diabetes: No Diminished Hearing: No Endocrine: No Gastrointestinal Disorders: Yes GERD: Yes Genitourinary: No Headaches: No Hiatal Hernia: Yes Hypertension: Yes Immune Disorder: No Implanted Vascular Access Dvce: No Kidney Stones: No Musculoskeletal: Yes Neurologic: Yes (TREMORS) Psychiatric: No Reproductive: No Respiratory: Yes Immunizations Current: No Migraines: No Myocardial Infarction: Yes (2011) Radiation Therapy: No Renal Failure: No Seizures: No Sickle Cell Disease: No Sleep Apnea: No Thyroid Disease: No Ulcer: No Tetanus Vaccination: > 5 Years Influenza Vaccination: Yes PNEUMOCCOCAL Vaccine (Year): 2 ?: Not Menopausal: Yes Past Surgical History Abdominal Surgery: No AICD: No Arteriovenous Shunt: No Body Medical Devices: HEART START Cardiac Surgery: Yes (CARDIAC STENT-2005 / STENTS x4 JULY 2011) Coronary Artery Bypass Graft: No Coronary Stent: Yes (4) Ear Surgery: No Endocrine Surgery: No Eye Surgery: Yes (BILAT. CATARACT REMOVAL) Genitourinary Surgery: No Gynecologic Surgery: Yes (HYSTERECTOMY ) Hysterectomy: Yes Insulin Pump: No Joint Replacement: No Neurologic Surgery: No Oral Surgery: No Pacemaker: No Thoracic Surgery: No Other Surgery: Yes (BREAST BX) Family History Family Myocardial Infarction: Yes Social History Alcohol Use: No Tobacco Use: No Substance Use: No Allergies-Medications (Allergen,Severity, Reaction): Coded Allergies: Sulfa (Sulfonamide Antibiotics) (Unverified Allergy, Severe, RASH, 08/08/17 ) erythromycin base (Unverified Allergy, Severe, RASH, 08/08/17) metoclopramide (Unverified Allergy, Severe, Rash, 08/08/17) tizanidine (Unverified Allergy, Severe, Rash, 08/08/17) codeine (Unverified Allergy, Unknown, 08/08/17) PT DOESNT KNOW WHY, BECAUSE SHE DOES NOT KNOW WHAT IT IS, IS ON HYDROCODONE AND LORTABS AT HOME simvastatin (Unverified Allergy, Unknown, 08/08/17) Uncoded Allergies: hydrocolliod dressing (Adverse Reaction, Severe, 05/12/13) Reported Meds & Prescriptions Reported Meds & Active Scripts Active Reported Valium (Diazepam) 5 Mg Tab 5 Mg PO BID PRN Senna-Tabs (Sennosides) 8.6 Mg Tab 8.6 Mg PO DAILY Pramipexole (Pramipexole Dihydrochloride) 0.125 Mg Tab 0.125 Mg PO BID Levothyroxine (Levothyroxine Sodium) 25 Mcg Tab 25 Mcg PO DAILY Rosuvastatin (Rosuvastatin Calcium) 20 Mg Tab 20 Mg PO DAILY Furosemide 40 Mg Tab 40 Mg PO BID Carvedilol 6.25 Mg Tab 6.25 Mg PO BID Restoril (Temazepam) 15 Mg Cap 15 Mg PO HS PRN Klor-Con 10 (Potassium Chloride) 10 Meq Tab 10 Meq PO DAILY Nitrostat SL (Nitroglycerin) 0.4 Mg Subl 0.4 Mg SL DIRECTED PRN 1 tablet under the tongue as needed for chest pain. Repeat every 5 minutes for a total of 3 DOSES or call 911 if NO relief. Linzess (Linaclotide) 290 Mcg Cap 290 Mcg PO DAILY Isosorbide Mononitrate ER (Isosorbide Mononitrate) 60 Mg Tab 60 Mg PO DAILY Breo Ellipta Inh (Fluticasone/Vilanterol) 100-25 Mcg/Act Inh 1 Puff INH DAILY Use daily at the same time. Aspirin Adult Low Strength (Aspirin) 81 Mg Tabdr 243 Mg PO DAILY Review of Systems General / Constitutional: No: Fever Eyes: No: Visual changes HENT: No: Headaches Cardiovascular: Positive: Chest Pain or Discomfort Respiratory: No: Shortness of Breath Gastrointestinal: No: Abdominal Pain Genitourinary: No: Dysuria Musculoskeletal: Positive: Weakness, No: Pain Skin: No Rash Neurologic: Positive: Weakness Psychiatric: No: Depression Endocrine: No: Polydipsia Hematologic/Lymphatic: No: Easy Bruising Physical Exam Narrative GENERAL: Thin elderly well-developed patient in no apparent distress. SKIN: Focused skin assessment reveals no rash and nodules. Skin is Warm and dry. HEAD: Atraumatic. Normocephalic. EYES: Pupils equal and round. No scleral icterus. No injection or drainage. ENT: No nasal bleeding or discharge. Mucous membranes pink and moist. NECK: Trachea midline. No JVD. CARDIOVASCULAR: Regular rate and rhythm. No murmur appreciated. RESPIRATORY: No accessory muscle use. Clear to auscultation. Breath sounds equal bilaterally. GASTROINTESTINAL: Abdomen soft, non-tender, nondistended. Hepatic and splenic margins not palpable. MUSCULOSKELETAL: No obvious deformities. No clubbing. No cyanosis. No edema. NEUROLOGICAL: Awake and alert. No obvious cranial nerve deficits. Motor grossly within normal limits. Normal speech. PSYCHIATRIC: Appropriate mood and affect; insight and judgment normal. Data Data Last Documented VS Vital Signs Date Time Temp Pulse Resp B/P (MAP) Pulse Ox O2 Delivery O2 Flow Rate FiO2 08/08/17 12:19 72 15 153/82 (105) 99 Nasal Cannula 2.00 08/08/17 11:20 98.6 Orders Orders Electrocardiogram (08/08/17 11:29) Complete Blood Count With Diff (08/08/17 11:29) Basic Metabolic Panel (Bmp) (08/08/17 11:29) Ckmb (Isoenzyme) Profile (08/08/17 11:29) Troponin I (08/08/17 11:29) Iv Access Insert/Monitor (08/08/17 11:29) Ecg Monitoring (08/08/17 11:29) Oxygen Administration (08/08/17 11:29) Oximetry (08/08/17 11:29) Chest, Single Ap (08/08/17 ) Labs Laboratory Tests Test 08/08/17 12:10 White Blood Count 6.7 TH/MM3 Red Blood Count 4.16 MIL/MM3 Hemoglobin 13.6 GM/DL Hematocrit 38.1 % Mean Corpuscular Volume 91.6 FL Mean Corpuscular Hemoglobin 32.7 PG Mean Corpuscular Hemoglobin Concent 35.7 % Red Cell Distribution Width 13.3 % Platelet Count 214 TH/MM3 Mean Platelet Volume 7.1 FL Neutrophils (%) (Auto) 64.9 % Lymphocytes (%) (Auto) 19.4 % Monocytes (%) (Auto) 10.5 % Eosinophils (%) (Auto) 4.1 % Basophils (%) (Auto) 1.1 % Neutrophils # (Auto) 4.4 TH/MM3 Lymphocytes # (Auto) 1.3 TH/MM3 Monocytes # (Auto) 0.7 TH/MM3 Eosinophils # (Auto) 0.3 TH/MM3 Basophils # (Auto) 0.1 TH/MM3 CBC Comment DIFF FINAL Differential Comment Blood Urea Nitrogen 14 MG/DL Creatinine 0.84 MG/DL Random Glucose 87 MG/DL Calcium Level 9.3 MG/DL Sodium Level 140 MEQ/L Potassium Level 3.9 MEQ/L Chloride Level 105 MEQ/L Carbon Dioxide Level 26.9 MEQ/L Anion Gap 8 MEQ/L Estimat Glomerular Filtration Rate 65 ML/MIN Total Creatine Kinase 38 U/L Troponin I LESS THAN 0.02 NG/ML MDM Medical Decision Making Medical Screen Exam Complete: Yes Emergency Medical Condition: Yes Medical Record Reviewed: Yes Differential Diagnosis Differential diagnosis includes NV, angina, pericarditis, pleurisy, GERD, anxiety. Narrative Course I have reviewed the patient's electronic medical record. She was here 2016 for chest pain. She ruled out and then was going to get stress testing or catheterization as outpatient. IV placed and labs sent Gave her an aspirin I reviewed her EKG which shows sinus rhythm but no ST elevation or ectopy I reviewed her chest x-ray which is normal CBC and metabolic studies are normal. Cardiac enzymes are normal Case reviewed in detail with her profile shaper operator Dr Pantoja. He did a catheterization 2 years ago. He did not require any intervention. He would like to discharge her and see her in the office in a day or 2. Patient is comfortable with that. She feels fine at this time. Workup is negative. Diagnosis Primary Impression: Chest pain Qualified Codes: R07.9 - Chest pain, unspecified Additional Impression: CAD (coronary artery disease) Qualified Codes: I25.10 - Atherosclerotic heart disease of [place] coronary artery without angina pectoris; I25.84 - Coronary atherosclerosis due to calcified coronary lesion Additional Instructions: Follow-up with your profile shaper operator Return for worsening Med/Other Pt SpecificInfo: Other Disposition: 01 DISCHARGE HOME Condition: Stable Akshat Knox MD Aug 08, 2017 12:18
[2017-08-08 12:19] VITALS: BP 153/82; PULSE 72; RESP 15; O2SAT 99
[2017-08-08 12:37] LABS: AUTOMATED NEUTROPHIL # 4.4 TH/MM3 (1.8-7.7); BASOPHIL # 0.1 TH/MM3 (0-0.2); BASOPHIL % 1.1 % (0.0-2.0); EOSINOPHIL # 0.3 TH/MM3 (0-0.4); EOSINOPHIL % 4.1 % (0.0-4.0); HEMATOCRIT 38.1 % (35.0-46.0); HEMOGLOBIN 13.6 GM/DL (11.6-15.3); LYMPH % 19.4 % (9.0-44.0); LYMPHOCYTE # 1.3 TH/MM3 (1.0-4.8); MEAN CELL VOLUME 91.6 FL (80.0-100.0); MEAN CORPUSCULAR HEMOGLOBIN 32.7 PG (27.0-34.0); MEAN CORPUSCULAR HGB CONC 35.7 % (32.0-36.0); MEAN PLATELET VOLUME 7.1 FL (7.0-11.0); MONO % 10.5 % (0.0-8.0); MONOCYTE # 0.7 TH/MM3 (0-0.9); NEUT % 64.9 % (16.0-70.0); PLATELET COUNT 214 TH/MM3 (150-450); RED BLOOD COUNT 4.16 MIL/MM3 (4.00-5.30); RED CELL DISTRIBUTION WIDTH 13.3 % (11.6-17.2); WHITE BLOOD COUNT 6.7 TH/MM3 (4.0-11.0)
--- NOTE | 2017-08-08 12:41 | RADRPT ---
EXAM DATE: 08/08/2017 12:28 PM EDT AGE/SEX: 81 years / Female INDICATIONS: Chest pressure. CLINICAL DATA: This is the patient's initial encounter. Patient reports that signs and symptoms have been present for 1 day and indicates a pain score of 0/10. MEDICAL/SURGICAL HISTORY: Chronic obstructive pulmonary disease. asthma, heart attack . 4 sten ts, stimulator for lower pack pain. COMPARISON: [facility], CHEST SINGLE AP, 07/24/2017. . FINDINGS: A single AP view of the chest demonstrates the lungs to be symmetrically aerated without evidence of mass, infiltrate or effusion. The cardiomediastinal contours are unremarkable the patient is again n oted to be status post kyphoplasty in the upper lumbar spine. There are multiple overlying electrocar diogram leads. CONCLUSION: No acute cardiopulmonary disease. Electronically signed by: Boubacar Nguyen MD 08/08/2017 12:40 PM EDT
[2017-08-08 13:02] LABS: BICARBONATE 26.9 MEQ/L (21.0-32.0); BLOOD UREA NITROGEN 14 MG/DL (7-18); CALCIUM 9.3 MG/DL (8.5-10.1); CHLORIDE 105 MEQ/L (98-107); CREATININE 0.84 MG/DL (0.50-1.00); GLOMERULAR FILTRATION RATE 65 ML/MIN (>89); GLUCOSE,RANDOM 87 MG/DL (74-106); SODIUM (NA) 140 MEQ/L (136-145)
[2017-08-08 13:05] LABS: TROPONIN I LESS THAN 0.02 NG/ML (0.02-0.05)
[2017-08-08 15:27] VITALS: BP 177/86
--- NOTE | 2017-08-09 14:04 | EKG ---
Date Performed: 08/08/2017 Time Performed: 11:42:04 PTAGE: 81 years EKG: Sinus rhythm BORDERLINE LEFT AXIS DEVIATION NONSPECIFIC T-WAVE ABNORMALITY BORDERLINE ECG PREVIOUS TRACING : 07/24/2017 12.34 DOCTOR: Rangel Palmer Interpretating Date/Time 08/09/2017 14:03:19
== END 2017-08-08 15:30 | disposition home or self-care (01) ==
LOC: NEPC 11:10
DX: R07.9 Chest pain, unspecified (principal); I25.10 Atherosclerotic heart disease of native coronary artery without angina pectoris; R53.1 Weakness; R94.31 Abnormal electrocardiogram [ECG] [EKG]; M19.90 Unspecified osteoarthritis, unspecified site; J45.909 Unspecified asthma, uncomplicated; F41.9 Anxiety disorder, unspecified; F32.9 Major depressive disorder, single episode, unspecified; E78.00 Pure hypercholesterolemia, unspecified; J44.9 Chronic obstructive pulmonary disease, unspecified; K21.9 Gastro-esophageal reflux disease without esophagitis; I10 Essential (primary) hypertension; I25.2 Old myocardial infarction; Z79.82 Long term (current) use of aspirin; Z79.899 Other long term (current) drug therapy; Z88.2 Allergy status to sulfonamides; Z88.5 Allergy status to narcotic agent; Z88.8 Allergy status to other drugs, medicaments and biological substances
CPT/HCPCS: 71045; 80048; 82550; 84484; 85025; 93005

== ENCOUNTER 2017-12-04 10:18 | Observation (INO) ==
[2017-12-04] MEDS ORDERED: Sod Chloride 0.9% Inj 1,000 ML IV.CONT SCH (10:45)
--- NOTE | 2017-12-04 10:45 | ED ---
HPI General Chief complaint: Abdominal Pain Stated complaint: abd pain Time Seen by Provider: 12/04/17 10:34 Source: patient Mode of arrival: EMS Limitations: no limitations History of Present Illness HPI narrative: This 82-year-old female is complaining of abdominal pain. She says she has been having abdominal pain for a couple of weeks. It is located under the rib cage and seems to spread throughout most of the abdomen. She has had nausea. She has not been eating well. She says she has not slept for the last 2 days because the pain has been fairly persistent. She does not recall having pain like this before. She did have a hysterectomy in the past. There is not been any other abdominal surgery. She has a history of coronary artery disease and had stents placed by Dr. Connor. She has had nausea and vomiting the last days and this morning she had a bout of diarrhea. She says the pain is quite severe. Seems aggravated by eating. Generally walks with a walker and says she is feeling very weak and has trouble walking Related Data Home Medications Medication Instructions Recorded Confirmed carvedilol 6.25 mg PO BID 12/04/17 12/04/17 fesoterodine [Toviaz] 1 tab PO DAILY 12/04/17 12/04/17 furosemide 1 tab PO BID 12/04/17 12/04/17 isosorbide mononitrate 1 tab PO DAILY 12/04/17 12/04/17 lansoprazole 30 mg PO BID 12/04/17 12/04/17 levothyroxine 1 tab PO DAILY 12/04/17 12/04/17 linaclotide [Linzess] 290 mcg PO DAILY 12/04/17 12/04/17 montelukast 10 mg PO QPM 12/04/17 12/04/17 potassium chloride 1 tab PO BID 12/04/17 12/04/17 pramipexole 0.125 mg PO TID 12/04/17 12/04/17 rosuvastatin 20 mg PO DAILY 12/04/17 12/04/17 sennosides-docusate sodium 2 tab FEEDING TUBE 12/04/17 [Senna-S] Allergies Allergy/AdvReac Type Severity Reaction Status Date / Time erythromycin base Allergy Severe RASH Verified 12/04/17 10:38 metoclopramide Allergy Severe Rash Verified 12/04/17 10:38 Sulfa (Sulfonamide Allergy Severe RASH Verified 12/04/17 10:38 Antibiotics) tizanidine Allergy Severe Rash Verified 12/04/17 10:38 codeine Allergy Unknown Gastrointestinal Verified 12/04/17 10:38 Upset simvastatin Allergy Unknown Confusion Verified 12/04/17 10:38 hydrocolliod dressing AdvReac Severe Rash Uncoded 12/04/17 10:38 Review of Systems ROS: all other systems reviewed are negative [facility] Medical History Medical History Coronary artery disease (Acute) GERD (gastroesophageal reflux disease) (Acute) High cholesterol (Acute) Hx of hysterectomy (Acute) Hypertension (Acute) Hypothyroidism (Acute) Surgical History Surgical History Hx of cardiac catheterization (Acute) Hx of heart artery stent (Acute) Social History Social History Substance History: No History of Abuse Second Hand Smoke Exposure: No Smoking Status: Never smoker How Often Do You Have a Drink Containing Alcohol: Never Recent Travel in [facility] within the Last 8 Weeks: No Recent Out of Country Travel within the Last 8 Weeks: No Immunization History Tetanus Immunization: Unsure Exam Narrative Exam Narrative: GENERAL: Elderly female SKIN: Focused skin assessment warm/dry. HEAD: Atraumatic. Normocephalic. EYES: Pupils equal and round. No scleral icterus. No injection or drainage. ENT: No nasal bleeding or discharge. Mucous membranes pink and moist. NECK: Trachea midline. No JVD. CARDIOVASCULAR: Regular rate and rhythm. No murmur appreciated. RESPIRATORY: No accessory muscle use. Clear to auscultation. Breath sounds equal bilaterally. GASTROINTESTINAL: Abdomen soft, there is some epigastric more diffuse tenderness without guarding or rigidity. Bowel sounds are present. I do not feel any abnormal masses MUSCULOSKELETAL: No obvious deformities. No clubbing. No cyanosis. No edema. NEUROLOGICAL: Awake and alert. No obvious cranial nerve deficits. Motor grossly within normal limits. Normal speech. PSYCHIATRIC: Appropriate mood and affect; insight and judgment normal. Course Initial Documented Vital Signs Temperature 98.5 F 12/04/17 10:25 Pulse Rate 72 12/04/17 10:25 Respiratory Rate 18 12/04/17 10:25 Blood Pressure 144/95 H 12/04/17 10:25 Pulse Oximetry 99 12/04/17 10:25 Last Documented Vital Signs Temperature 98.5 F 12/04/17 10:25 Pulse Rate 72 12/04/17 10:25 Respiratory Rate 18 12/04/17 10:25 Blood Pressure 144/95 H 12/04/17 10:25 Pulse Oximetry 99 12/04/17 10:25 Medical Decision Making MDM Narrative Medical decision making narrative: Patient appears dehydrated. A CT scan is read as showing colonic ileus. She was given some morphine for pain with minimal relief. Her potassium is only 3.0. She will be admitted for observation Medical Screen Exam Complete: Yes Emergency Medical Condition: Yes Differential Diagnosis Differential Diagnosis: Differential includes diverticulitis, ulcer disease, cholecystitis, gastroenteritis Lab Data Result diagrams: 12/04/17 11:00 12/04/17 11:00 Lab Results 12/04/17 12/04/17 12/04/17 Range/Units 11:00 11:00 12:30 CBC w Diff Auto diff final WBC 7.3 (4.0-11.0) th/mm3 RBC 4.42 (4.00-5.30) mil/mm3 Hgb 13.6 (11.6-15.3) gm/dL Hct 39.7 (35.0-46.0) % MCV 89.9 (80.0-100.0) fL MCH 30.8 (27.0-34.0) pg MCHC 34.3 (32.0-36.0) % RDW 12.4 (11.6-17.2) % Plt Count 258 (150-450) th/mm3 MPV 7.2 (7.0-11.0) fL Neut % (Auto) 73.5 H (16.0-70.0) % Lymph % (Auto) 14.0 (9.0-44.0) % [place] % (Auto) 10.0 H (0.0-8.0) % Eos % (Auto) 2.1 (0.0-4.0) % Baso % (Auto) 0.4 (0.0-2.0) % Neut # (Auto) 5.4 (1.8-7.7) th/mm3 Lymph # (Auto) 1.0 (1.0-4.8) th/mm3 [place] # (Auto) 0.7 (0.0-0.9) th/mm3 Eos # (Auto) 0.2 (0.0-0.4) th/mm3 Baso # (Auto) 0.0 (0.0-0.2) th/mm3 WBC Differential . Differential Comment . Sodium 138 (136-145) meq/L Potassium 3.0 L (3.5-5.1) meq/L Chloride 102 (98-107) meq/L Carbon Dioxide 24.8 (21.0-32.0) meq/L Anion Gap 11 (5-15) meq/L BUN 14 (7-18) mg/dL Creatinine 0.75 (0.50-1.00) mg/dL Estimated GFR 74 L (>89) mL/min Random Glucose 100 (74-106) mg/dL Calcium 9.5 (8.5-10.1) mg/dL Total Bilirubin 0.7 (0.2-1.0) mg/dL AST 21 (15-37) U/L ALT 22 (10-53) U/L Alkaline Phosphatase 82 (45-117) U/L Total Protein 7.2 (6.4-8.2) g/dL Albumin 3.9 (3.4-5.0) g/dL Lipase 252 (73-393) U/L Urine Color Yellow (Yellw/Straw) Urine Clarity Clear (Clear) Urine pH 6.5 (5.0-8.5) Ur Specific [place] Less/equal 1.005 (1.002-1.035) Urine Protein Trace (Neg-Trace) mg/dL Urine Glucose (UA) Negative (Negative) mg/dL Urine Ketones 15 H (Negative) mg/dL Urine Occult Blood Negative (Negative) Urine Nitrate Negative (Negative) Urine Bilirubin Negative (Negative) Urine Urobilinogen 0.2 (Less than 2) mg/dL Ur Leukocyte Esterase Negative (Negative) Imaging Data Radiologist's impression: Abdomen/Pelvis CT 12/04/17 10:39 CONCLUSION: 1. Mild diffuse gaseous distention of the colon which may reflect some degree of mild colonic ileus. 2. Mild sigmoid diverticulosis without definitive evidence for diverticulitis. 3. Status post cement augmentation at L1-2 with chronic T12 compression fracture. Discharge Plan Discharge Disposition Patient Disposition: 30 Still Patient Discharge Details Diagnosis: Ileus Physicians Team ED Provider: Rod Luna Primary Care Provider: Lauri Betancourt III Rxs /Orders / Referrals /Forms Prescriptions: No Action furosemide 40 mg Tablet 1 tab PO BID RF: 0 potassium chloride 10 mEq Capsule, Extended Release 1 tab PO BID RF: 0 carvedilol 6.25 mg Tablet 6.25 mg PO BID RF: 0 sennosides-docusate sodium [Senna-S] 8.6-50 mg Tablet 2 tab Feeding Tube RF: 0 levothyroxine 25 mcg Tablet 1 tab PO DAILY RF: 0 isosorbide mononitrate 60 mg Tablet Extended Release 24 Hr 1 tab PO DAILY RF: 0 lansoprazole 30 mg Capsule,Delayed Release(Dr/Ec) 30 mg PO BID RF: 0 pramipexole 0.125 mg Tablet 0.125 mg PO TID RF: 0 montelukast 10 mg Tablet 10 mg PO QPM RF: 0 rosuvastatin 20 mg Tablet 20 mg PO DAILY RF: 0 fesoterodine [Toviaz] 4 mg Tablet Extended Release 24 Hr 1 tab PO DAILY RF: 0 linaclotide [Linzess] 290 mcg Capsule 290 mcg PO DAILY RF: 0 Status ED Status: With Doctor
[2017-12-04 11:12] LABS: Baso % (Auto) 0.4 % (0.0-2.0); Eos # (Auto) 0.2 th/mm3 (0.0-0.4); Eos % (Auto) 2.1 % (0.0-4.0); Hematocrit 39.7 % (35.0-46.0); Hemoglobin 13.6 gm/dL (11.6-15.3); Mean Corpuscular HGB Conc 34.3 % (32.0-36.0); Mean Corpuscular Hemoglobin 30.8 pg (27.0-34.0); Mean Corpuscular Volume 89.9 fL (80.0-100.0); Mean Platelet Volume 7.2 fL (7.0-11.0); Mono # (Auto) 0.7 th/mm3 (0.0-0.9); Neut # (Auto) 5.4 th/mm3 (1.8-7.7); Neut % (Auto) 73.5 % (16.0-70.0); Platelet Count 258 th/mm3 (150-450); Red Blood Count 4.42 mil/mm3 (4.00-5.30); Red Cell Distribution Width 12.4 % (11.6-17.2); White Blood Count 7.3 th/mm3 (4.0-11.0)
[2017-12-04 11:23] LABS: Chloride 102 meq/L (98-107); Sodium 138 meq/L (136-145)
[2017-12-04 11:26] LABS: Calcium 9.5 mg/dL (8.5-10.1)
[2017-12-04 11:27] LABS: Albumin 3.9 g/dL (3.4-5.0); Anion Gap 11 meq/L (5-15); Blood Urea Nitrogen 14 mg/dL (7-18); Carbon Dioxide 24.8 meq/L (21.0-32.0); Glucose,Random 100 mg/dL (74-106); Lipase 252 U/L (73-393)
[2017-12-04 11:30] LABS: Alanine Aminotransferase 22 U/L (10-53); Aspartate Aminotransferase 21 U/L (15-37); Glomerular Filtration Rate 74 mL/min (>89)
[2017-12-04 11:31] LABS: Total Protein 7.2 g/dL (6.4-8.2)
[2017-12-04 11:32] LABS: Alkaline Phosphatase 82 U/L (45-117)
--- NOTE | 2017-12-04 12:14 | CT ---
EXAM DATE: 12/04/2017 10:50 AM EDT AGE/SEX: 82 years / Female INDICATIONS: Diffuse abdominal pain. CLINICAL DATA: This is the patient's initial encounter. Patient reports that signs and symptoms have been present for 2 weeks and indicates a pain score of 7/10. MEDICAL/SURGICAL HISTORY: Gastroesophageal reflux disease. Cardiovascular disease. Hypertensi on. Coronary artery stent. Hysterectomy. ORAL CONTRAST: No oral contrast ingested. RADIATION DOSE: 5.16 CTDI (mGy) COMPARISON: [facility], CT ABDOMEN AND PELVIS W/ CONTRAST, 05/23/2017. . TECHNIQUE: Multiple contiguous axial images were obtained through the abdomen and pelvis following b olus infusion of 85 ml Omnipaque 350 (iohexol) nonionic water-soluble contrast as a single exam dos e. No oral contrast ingested. Using automated exposure control and adjustment of the mA and/or kV ac cording to patient size, radiation dose was kept as low as reasonably achievable to obtain optimal di agnostic quality images. DICOM format image data is available electronically for review and comparis on. FINDINGS: LOWER LUNGS: The visualized lower lungs are clear. LIVER: The liver has a homogeneous density without space-occupying lesion. There is no dilation of t he biliary tree. SPLEEN: Borderline splenomegaly. PANCREAS: Unremarkable without mass or calcification. KIDNEYS: Kidneys demonstrate symmetrical enhancement without radiopaque renal calculi or hydronephro sis. Subcentimeter hypodense cystic lesions in the left kidney are too small to fully characterize. ADRENAL GLANDS: Unremarkable. AORTA: Renu-aneurysmal. BOWEL/MESENTERY: Mild sigmoid diverticulosis. No significant inflammatory change. Mild diffuse gaseo us distention of the colon extending to the rectum. No significant free fluid or drainable fluid ángela ections. No free air. ABDOMINAL WALL: Intact. RETROPERITONEUM: No evidence of adenopathy in the retrocrural, para-aortic, or deep pelvic regions. BLADDER: Contours are smooth. REPRODUCTIVE: Uterus is surgically absent. BONY STRUCTURES: Status post cement augmentation at L1 and L2. Chronic compression fracture at T12. Degenerative spondylosis at L5-S1. Spinal stimulator in place. Left femoral neck compression screw fi xation. CONCLUSION: 1. Mild diffuse gaseous distention of the colon which may reflect some degree of mild colonic ileus. 2. Mild sigmoid diverticulosis without definitive evidence for diverticulitis. 3. Status post cement augmentation at L1-2 with chronic T12 compression fracture. Electronically signed by: Adam Haas MD 12/04/2017 12:12 PM EDT
[2017-12-04 12:51] LABS: Bilirubin,Urine Negative (Negative); Clarity,Urine Clear (Clear); Color,Urine Yellow (Yellw/Straw); Glucose,Urine (UA) Negative (Negative); Leukocyte Esterase,Urine Negative (Negative); Nitrite,Urine Negative (Negative); PH,Urine 6.5 (5.0-8.5); Specific Gravity,Urine Less/Equal 1.005 (1.002-1.035); Urobilinogen,Urine 0.2 mg/dL (Less than 2)
[2017-12-04 12:56] LABS: RBC,Urine 0-3 /hpf (0-3)
[2017-12-04 12:57] LABS: Squamous Epithelial Cell,Urine 0-5 /hpf (0-5); WBC,Urine 0-5 /hpf (0-5)
[2017-12-04] MEDS ORDERED: Potassium Chlor 20 mEq Premix 20 MEQ/100 ML PIGGYBACK IV.SIG ONE (12:59)
[2017-12-04] MEDS: Sodium Chloride 0.45 % Inj 1,000 ML IV.CONT SCH (15:47)
[2017-12-04] MEDS ORDERED: Acetaminophen 325 MG Tablet PO PRN (16:00)
--- NOTE | 2017-12-04 16:19 | P.HP ---
History of Present Illness Primary Care Physician: Lauri Betancourt III, MD Chief Complaint: Abdominal pain History of Present Illness: 82-year-old female with a past medical history of hypertension, CAD, hypothyroidism presented to the ED for evaluation of abdominal pain times several weeks duration mostly located under her rib cage described as stabbing and associated with nausea and emesis, although patient reports some occasional dry heaves. She decreased appetite due to difficulty with swallowing. She also reported an acute onset of loose stool today. CT abdomen in the ED revealed mild colonic ileus. Patient is status post hysterectomy however denies any other abdominal surgeries. She denies any GI bleed. She reported generalized weakness. During my exam, she was quite anxious and stated her passed last year February 2016. 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 - Medical History Medical History: Medical History (Last Reviewed 12/04/17 @ 12:57 by Rod Luna MD) Coronary artery disease GERD (gastroesophageal reflux disease) High cholesterol Hx of hysterectomy Hypertension Hypothyroidism - Surgical History Surgical History: Surgical History (Last Reviewed 12/04/17 @ 12:57 by Rod Luna MD) Hx of cardiac catheterization Hx of heart artery stent - Family History Family History: Family History (Last Updated 12/04/17 @ 16:13 by Chito Cottrell MD) Other Heart disease - Tobacco History Second Hand Smoke Exposure: No Tobacco Use In Past 30 Days: No Smoking Status: Never smoker - Alcohol History How Often Do You Have a Drink Containing Alcohol: Never - Substance Use History Substance History: No History of Abuse - Travel History Recent Travel in the [place] Within the Last 8 Weeks: No Recent Travel Out of the Country Within the Last 8 Weeks: No - Immunization History Tetanus Immunization: Unsure Medications and Allergies Active Medications: Active Medications Acetaminophen (Tylenol) 650 mg PO Q4H PRN PRN Reason: Temp > 100.4 Al Hydroxide/Mg Hydroxide (Milk Of Magnesia Liq) 30 ml PO Q12H PRN PRN Reason: Mild Constipation Alprazolam (Xanax) 0.25 mg PO Q12H PRN PRN Reason: ANXIETY Atorvastatin Calcium (Lipitor) 20 mg PO DAILY [facility] Carvedilol (Coreg) 6.25 mg PO BID [facility] Enalaprilat (Vasotec Inj) 2.5 mg IV.PUSH Q6H PRN PRN Reason: SBP>160, DBP>90 Last Admin: 12/04/17 15:30 Dose: 2.5 mg Furosemide (Lasix) 40 mg PO BID [facility] Sodium Chloride (Ns Inj) 1,000 mls @ 125 mls/hr IV.CONT .Q8H [facility] Stop: 12/04/17 18:44 Last Admin: 12/04/17 11:04 Dose: 125 mls/hr Sodium Chloride (1/2 Normal Saline Inj) 1,000 mls @ 75 mls/hr IV.CONT .[id number] [facility] Last Admin: 12/04/17 15:47 Dose: Not Given Isosorbide Mononitrate (Imdur) 60 mg PO DAILY [facility] Levothyroxine Sodium (Synthroid) 25 mcg PO DAILY@0600 [facility] Miscellaneous (Pill Splitter) 1 each OTHER UNSCH [facility] Montelukast Sodium (Singulair) 10 mg PO QPM [facility] Ondansetron HCl (Zofran Inj) 4 mg IV.PUSH Q6H PRN PRN Reason: NAUSEA OR VOMITING Pantoprazole Sodium (Protonix Inj) 40 mg IV.PUSH Q24H [facility] Linaclotide (Linzess () 290 Mcg Po Daily) 0 each PO DAILY [facility] Potassium Chloride (Kcl) 10 meq PO BID [facility] Pramipexole Dihydrochloride (Mirapex) 0.125 mg PO TID [facility] Allergies Allergy/AdvReac Type Severity Reaction Status Date / Time erythromycin base Allergy Severe RASH Verified 12/04/17 10:38 metoclopramide Allergy Severe Rash Verified 12/04/17 10:38 Sulfa (Sulfonamide Allergy Severe RASH Verified 12/04/17 10:38 Antibiotics) tizanidine Allergy Severe Rash Verified 12/04/17 10:38 codeine Allergy Unknown Gastrointestinal Verified 12/04/17 10:38 Upset simvastatin Allergy Unknown Confusion Verified 12/04/17 10:38 hydrocolliod dressing AdvReac Severe Rash Uncoded 12/04/17 10:38 Home Medications Medication Instructions Recorded Confirmed Type carvedilol 6.25 mg PO BID 12/04/17 12/04/17 History fesoterodine [Toviaz] 1 tab PO DAILY 12/04/17 12/04/17 History furosemide 1 tab PO BID 12/04/17 12/04/17 History isosorbide mononitrate 1 tab PO DAILY 12/04/17 12/04/17 History lansoprazole 30 mg PO BID 12/04/17 12/04/17 History levothyroxine 1 tab PO DAILY 12/04/17 12/04/17 History linaclotide [Linzess] 290 mcg PO DAILY 12/04/17 12/04/17 History montelukast 10 mg PO QPM 12/04/17 12/04/17 History potassium chloride 1 tab PO BID 12/04/17 12/04/17 History pramipexole 0.125 mg PO TID 12/04/17 12/04/17 History rosuvastatin 20 mg PO DAILY 12/04/17 12/04/17 History Exam Vital signs: Vital Signs 12/04/17 10:25 12/04/17 13:22 12/04/17 15:48 Temperature 98.5 F 99.2 F Pulse Rate 72 65 68 Respiratory Rate 18 16 16 Blood Pressure 144/95 H 187/86 H 180/84 H Pulse Oximetry 99 98 95 Intake & Output 12/03/17 12/04/17 12/04/17 18:59 06:59 18:59 Intake Total 100 / 100 Balance 100 / 100 Weight 49.895 kg Intake: IV 100 / 100 KCl 20 mEq Premix Inj 20 meq In 100 / 100 100 ml @ 50 mls/hr IV.SIG ONCE ONE Rx#:[id number] Narrative: GENERAL: NAD but anxious SKIN: Warm and dry. HEAD: Atraumatic. Normocephalic. EYES: Pupils equal and round. No scleral icterus. No injection or drainage. ENT: No nasal bleeding or discharge. Mucous membranes pink and moist. NECK: Trachea midline. No JVD. CARDIOVASCULAR: Regular rate and rhythm. RESPIRATORY: No accessory muscle use. Clear to auscultation. Breath sounds equal bilaterally. GASTROINTESTINAL: Abdomen soft, mildly tender, nondistended. Hepatic and splenic margins not palpable. +BS MUSCULOSKELETAL: Extremities without clubbing, cyanosis, or edema. No obvious deformities. NEUROLOGICAL: Awake and alert. No obvious cranial nerve deficits. Motor grossly within normal limits. Five out of 5 muscle strength in the arms and legs. Normal speech. PSYCHIATRIC: Appropriate mood and affect; insight and judgment normal. Results - Labs CBC & Chem 7: 12/04/17 11:00 12/04/17 11:00 Labs: Laboratory Results - last 24 hr 12/04/17 12/04/17 12/04/17 11:00 11:00 12:30 CBC w Diff Auto diff final WBC 7.3 RBC 4.42 Hgb 13.6 Hct 39.7 MCV 89.9 MCH 30.8 MCHC 34.3 RDW 12.4 Plt Count 258 MPV 7.2 Neut % (Auto) 73.5 H Lymph % (Auto) 14.0 [place] % (Auto) 10.0 H Eos % (Auto) 2.1 Baso % (Auto) 0.4 Neut # (Auto) 5.4 Lymph # (Auto) 1.0 [place] # (Auto) 0.7 Eos # (Auto) 0.2 Baso # (Auto) 0.0 WBC Differential . Differential Comment . Sodium 138 Potassium 3.0 L Chloride 102 Carbon Dioxide 24.8 Anion Gap 11 BUN 14 Creatinine 0.75 Estimated GFR 74 L Random Glucose 100 Calcium 9.5 Total Bilirubin 0.7 AST 21 ALT 22 Alkaline Phosphatase 82 Total Protein 7.2 Albumin 3.9 Lipase 252 Ur Collection Type Clean catch Urine Color Yellow Urine Clarity Clear Urine pH 6.5 Ur Specific [place] Less/equal 1.005 Urine Protein Trace Urine Glucose (UA) Negative Urine Ketones 15 H Urine Occult Blood Negative Urine Nitrate Negative Urine Bilirubin Negative Urine Urobilinogen 0.2 Ur Leukocyte Esterase Negative Urine RBC 0-3 Urine WBC 0-5 Ur Squamous Epith Cells 0-5 Ur Renal Epithelial Cell 1-5 H Micro UA Comment Culture not ind Ur Microscopic Review Microscopic reviewed Urine Culture Comments Culture not ind - Imaging Impressions Abdomen/Pelvis CT 12/04/17 10:39 CONCLUSION: 1. Mild diffuse gaseous distention of the colon which may reflect some degree of mild colonic ileus. 2. Mild sigmoid diverticulosis without definitive evidence for diverticulitis. 3. Status post cement augmentation at L1-2 with chronic T12 compression fracture. Caprini VTE Risk Assessment Caprini VTE Risk Assessment: Moderate/High Risk (score >= 2) Caprini Risk Assessment Model: Point Value = 1 Point Value = 2 Point Value = 3 Point Value = 5 Age 41-60 Minor surgery BMI > 25 kg/m2 Swollen legs Varicose veins or History of unexplained or recurrent spontaneous Oral contraceptives or hormone replacement Sepsis (< 1 month) Serious lung disease, including pneumonia (< 1 month) Abnormal pulmonary function Acute myocardial infarction Congestive heart failure (< 1 month) History of inflammatory bowel disease Medical patient at bed rest Age 61-74 Arthroscopic surgery Major open surgery (> 45 min) Laparoscopic surgery (> 45 min) Malignancy Confined to bed (> 72 hours) Immobilizing plaster cast Central venous access Age >= 75 History of VTE Family history of VTE Factor V Leiden Prothrombin [id number] Lupus anticoagulant Anticardiolipin antibodies Elevated serum homocysteine Heparin-induced thrombocytopenia Other congenital or acquired thrombophilia Stroke (< 1 month) Elective arthroplasty Hip, pelvis, or leg fracture Acute spinal cord injury (< 1 month) Prophylaxis Regimen: Total Risk Factor Score Risk Level Prophylaxis Regimen 0-1 Low Early ambulation 2 Moderate Order ONE of the following: *Sequential Compression Device (SCD) *Heparin 5000 units SQ BID 3-4 Higher Order ONE of the following medications: *Heparin 5000 units SQ TID *Enoxaparin/Lovenox 40 mg SQ daily (WT < 150 kg, CrCl > 30 mL/min) *Enoxaparin/Lovenox 30 mg SQ daily (WT < 150 kg, CrCl > 10-29 mL/min) *Enoxaparin/Lovenox 30 mg SQ BID (WT < 150 kg, CrCl > 30 mL/min) AND/OR *Sequential Compression Device (SCD) 5 or more Highest Order ONE of the following medications: *Heparin 5000 units SQ TID (Preferred with Epidurals) *Enoxaparin/Lovenox 40 mg SQ daily (WT < 150 kg, CrCl > 30 mL/min) *Enoxaparin/Lovenox 30 mg SQ daily (WT < 150 kg, CrCl > 10-29 mL/min) *Enoxaparin/Lovenox 30 mg SQ BID (WT < 150 kg, CrCl > 30 mL/min) AND *Sequential Compression Device (SCD) Assessment and Plan - Assessment (1) Ileus Code(s): K56.7 - Ileus, unspecified Status: Acute - Plan 82-year-old female with Colonic ileus CT abdomen noted and reviewed by me with finding of mild colonic ileus Will keep patient n.p.o., start IV fluids, antiemetic and pain management accordingly Check flat and upright in a.m. Hypokalemia Replace electrolytes and monitor History of hypertension, CAD and other chronic medical conditions Resume outpatient medications
[2017-12-04] MEDS ORDERED: ALPRAZolam 0.25 MG Tablet PO PRN (17:00)
[2017-12-04] MEDS ORDERED: Montelukast 10 MG Tablet PO SCH (18:00)
[2017-12-04] MEDS: Carvedilol 6.25 MG Tablet PO SCH (20:26)
[2017-12-04] MEDS: Furosemide 40 MG Tablet PO SCH (20:26)
[2017-12-04] MEDS ORDERED: Potassium Chloride 10 MEQ ER Capsule PO SCH (21:00)
[2017-12-05 05:32] LABS: Baso % (Auto) 0.6 % (0.0-2.0); Eos # (Auto) 0.4 th/mm3 (0.0-0.4); Eos % (Auto) 5.2 % (0.0-4.0); Hematocrit 38.8 % (35.0-46.0); Hemoglobin 12.8 gm/dL (11.6-15.3); Lymph # (Auto) 1.5 th/mm3 (1.0-4.8); Lymph % (Auto) 21.2 % (9.0-44.0); Mean Corpuscular Hemoglobin 30.9 pg (27.0-34.0); Mean Corpuscular Volume 93.4 fL (80.0-100.0); Mean Platelet Volume 7.3 fL (7.0-11.0); Mono # (Auto) 0.7 th/mm3 (0.0-0.9); Mono % (Auto) 9.6 % (0.0-8.0); Neut # (Auto) 4.4 th/mm3 (1.8-7.7); Neut % (Auto) 63.4 % (16.0-70.0); Platelet Count 232 th/mm3 (150-450); Red Blood Count 4.15 mil/mm3 (4.00-5.30); Red Cell Distribution Width 12.7 % (11.6-17.2)
[2017-12-05 05:48] LABS: Chloride 104 meq/L (98-107); Potassium 3.2 meq/L (3.5-5.1); Sodium 139 meq/L (136-145)
[2017-12-05 05:52] LABS: Albumin 3.7 g/dL (3.4-5.0); Anion Gap 11 meq/L (5-15); Blood Urea Nitrogen 18 mg/dL (7-18); Calcium 9.1 mg/dL (8.5-10.1); Carbon Dioxide 24.3 meq/L (21.0-32.0); Glucose,Random 62 mg/dL (74-106)
[2017-12-05 05:55] LABS: Alanine Aminotransferase 17 U/L (10-53); Aspartate Aminotransferase 19 U/L (15-37); Glomerular Filtration Rate 81 mL/min (>89)
[2017-12-05 05:57] LABS: Total Protein 6.7 g/dL (6.4-8.2)
[2017-12-05 05:58] LABS: Alkaline Phosphatase 77 U/L (45-117)
[2017-12-05] MEDS: Sodium Chloride 0.45 % Inj 1,000 ML IV.CONT SCH (06:27)
--- NOTE | 2017-12-05 08:30 | XR ---
EXAM DATE: 12/05/2017 12:00 AM EDT AGE/SEX: 82 years / Female INDICATIONS: Abdominal pain. CLINICAL DATA: This is the patient's subsequent encounter. Patient reports that signs and symptoms h ave been present for 2 weeks and indicates a pain score of 2/10. MEDICAL/SURGICAL HISTORY: Gastroesophageal reflux disease. Hypothyroidism. Hypercholesterolem ia. CAD. Hypertension. Coronary artery stent. Hysterectomy. COMPARISON: [facility], CT ABDOMEN & PELVIS W CONTRAST, 12/04/2017. . FINDINGS: There is thoracic kyphoplasty's. Thoracic spine stimulator in place with ControlPak over the left tracey ac crest. Residual contrast in the bladder. Previous pinning of the left hip. Nonspecific, benign int estinal gas pattern. No evidence of pneumoperitoneum. No suspicious calcific densities. Degenerative changes in the spine and right hip. CONCLUSION: Nonspecific, benign abdomen appearance. Electronically signed by: Luis Carlos Boykin MD 12/05/2017 8:28 AM EDT
[2017-12-05] MEDS ORDERED: Pantoprazole Inj 40 MG Vial IV.PUSH SCH (09:00)
[2017-12-05] MEDS ORDERED: Isosorbide Mononitrate 60 MG ER 24HR Tablet (Imdur) PO SCH (09:00)
[2017-12-05] MEDS ORDERED: LINACLOTIDE 290 MCG PO SCH (09:00)
[2017-12-05] MEDS: Carvedilol 6.25 MG Tablet PO SCH (09:25)
[2017-12-05] MEDS: Potassium Chloride 25 MEQ Effervescent Tablet PO ONE ×2 (09:26→10:42)
[2017-12-05] MEDS: Furosemide 40 MG Tablet PO SCH (09:26)
--- NOTE | 2017-12-05 10:05 | P.PN ---
Subjective Interval history: Follow-up colonic ileus December 05, 2017-patient seen and examined, reports improvement of abdominal pain. No emesis since admission. Afebrile. Physical Exam Vital signs: Vital Signs 12/04/17 10:25 12/04/17 13:22 12/04/17 15:48 Temperature 98.5 F 99.2 F Pulse Rate 72 65 68 Respiratory Rate 18 16 16 Blood Pressure 144/95 H 187/86 H 180/84 H Pulse Oximetry 99 98 95 12/04/17 18:12 12/04/17 20:00 12/05/17 00:00 Temperature 99.8 F H 98.9 F Pulse Rate 68 59 L Respiratory Rate 16 16 Blood Pressure 180/84 H 189/86 H 137/68 Pulse Oximetry 94 L 99 12/05/17 09:37 Temperature 98.1 F Pulse Rate 65 Respiratory Rate 18 Blood Pressure 170/81 H Pulse Oximetry 99 Intake & Output 12/04/17 12/05/17 12/05/17 18:59 06:59 18:59 Intake Total 100 / 100 1000 / 1000 Output Total 500 / 500 Balance 100 / 100 500 / 500 Weight 49.895 kg 49.8 kg Intake: IV 100 / 100 1000 / 1000 NS Inj 1,000 ML @ 125 mls/hr IV 1000 / 1000 .CONT .Q8H LATRICE Rx#:[id number] KCl 20 mEq Premix Inj 20 meq In 100 / 100 100 ml @ 50 mls/hr IV.SIG ONCE ONE Rx#:[id number] Output: Urine 500 / 500 Other: # Voids 2 # Bowel Movements 1 Narrative: GENERAL: NAD SKIN: Warm and dry. HEAD: Atraumatic. Normocephalic. EYES: Pupils equal and round. No scleral icterus. No injection or drainage. ENT: No nasal bleeding or discharge. Mucous membranes pink and moist. NECK: Trachea midline. No JVD. CARDIOVASCULAR: Regular rate and rhythm. RESPIRATORY: No accessory muscle use. Clear to auscultation. Breath sounds equal bilaterally. GASTROINTESTINAL: Abdomen soft, mildly tender, nondistended. Hepatic and splenic margins not palpable. +BS MUSCULOSKELETAL: Extremities without clubbing, cyanosis, or edema. No obvious deformities. NEUROLOGICAL: Awake and alert. No obvious cranial nerve deficits. Motor grossly within normal limits. Five out of 5 muscle strength in the arms and legs. Normal speech. PSYCHIATRIC: Appropriate mood and affect; insight and judgment normal. Results - Labs CBC & Chem 7: 12/05/17 04:40 12/05/17 04:40 Laboratory Results - last 24 hr 12/04/17 12/04/17 12/04/17 11:00 11:00 12:30 CBC w Diff Auto diff final WBC 7.3 RBC 4.42 Hgb 13.6 Hct 39.7 MCV 89.9 MCH 30.8 MCHC 34.3 RDW 12.4 Plt Count 258 MPV 7.2 Neut % (Auto) 73.5 H Lymph % (Auto) 14.0 [place] % (Auto) 10.0 H Eos % (Auto) 2.1 Baso % (Auto) 0.4 Neut # (Auto) 5.4 Lymph # (Auto) 1.0 [place] # (Auto) 0.7 Eos # (Auto) 0.2 Baso # (Auto) 0.0 WBC Differential . Differential Comment . Sodium 138 Potassium 3.0 L Chloride 102 Carbon Dioxide 24.8 Anion Gap 11 BUN 14 Creatinine 0.75 Estimated GFR 74 L Random Glucose 100 Calcium 9.5 Total Bilirubin 0.7 AST 21 ALT 22 Alkaline Phosphatase 82 Total Protein 7.2 Albumin 3.9 Lipase 252 Ur Collection Type Clean catch Urine Color Yellow Urine Clarity Clear Urine pH 6.5 Ur Specific [place] Less/equal 1.005 Urine Protein Trace Urine Glucose (UA) Negative Urine Ketones 15 H Urine Occult Blood Negative Urine Nitrate Negative Urine Bilirubin Negative Urine Urobilinogen 0.2 Ur Leukocyte Esterase Negative Urine RBC 0-3 Urine WBC 0-5 Ur Squamous Epith Cells 0-5 Ur Renal Epithelial Cell 1-5 H Micro UA Comment Culture not ind Ur Microscopic Review Microscopic reviewed Urine Culture Comments Culture not ind 12/05/17 12/05/17 04:40 04:40 CBC w Diff Auto diff final WBC 7.0 RBC 4.15 Hgb 12.8 Hct 38.8 MCV 93.4 D MCH 30.9 MCHC 33.0 RDW 12.7 Plt Count 232 MPV 7.3 Neut % (Auto) 63.4 Lymph % (Auto) 21.2 [place] % (Auto) 9.6 H Eos % (Auto) 5.2 H Baso % (Auto) 0.6 Neut # (Auto) 4.4 Lymph # (Auto) 1.5 [place] # (Auto) 0.7 Eos # (Auto) 0.4 Baso # (Auto) 0.0 WBC Differential . Differential Comment . Sodium 139 Potassium 3.2 L Chloride 104 Carbon Dioxide 24.3 Anion Gap 11 BUN 18 Creatinine 0.70 Estimated GFR 81 L Random Glucose 62 L Calcium 9.1 Total Bilirubin 0.9 AST 19 ALT 17 Alkaline Phosphatase 77 Total Protein 6.7 Albumin 3.7 Lipase Ur Collection Type Urine Color Urine Clarity Urine pH Ur Specific [place] Urine Protein Urine Glucose (UA) Urine Ketones Urine Occult Blood Urine Nitrate Urine Bilirubin Urine Urobilinogen Ur Leukocyte Esterase Urine RBC Urine WBC Ur Squamous Epith Cells Ur Renal Epithelial Cell Micro UA Comment Ur Microscopic Review Urine Culture Comments - Imaging Impressions Abdomen/Pelvis CT 12/04/17 10:39 CONCLUSION: 1. Mild diffuse gaseous distention of the colon which may reflect some degree of mild colonic ileus. 2. Mild sigmoid diverticulosis without definitive evidence for diverticulitis. 3. Status post cement augmentation at L1-2 with chronic T12 compression fracture. Abdomen X-Ray 12/05/17 00:00 CONCLUSION: Nonspecific, benign abdomen appearance. - Procedures None Assessment and Plan - Assessment (1) Ileus Code(s): K56.7 - Ileus, unspecified Status: Acute - Plan 82-year-old female with Colonic ileus-resolved CT abdomen with finding of mild colonic ileus December 04, 2017 Start Regular diet and d/c IV fluids; continue antiemetic and pain management accordingly flat and upright this a.m December 05, 2017 with Nonspecific, benign abdomen appearance Hypokalemia Replace electrolytes and monitor History of hypertension, CAD and other chronic medical conditions Continue outpatient medications Discharge patient to home Condition on discharge: Improved Regular Diet as tolerated Ad Stacey activity Rx written:None Follow-up with primary care physician in 1 week
--- NOTE | 2017-12-05 10:48 | P.DCO ---
- Physical Therapy Order: Evaluate and treat - Home Health Nursing Order: Signs/symptoms of disease process - Certification I have seen patient Elena Pineda on 12/05/17. My clinical findings support the need for the requested home health care services because: Patient has SOB I certify that my clinical findings support that this patient is homebound because: Poor cardiac reserve
[2017-12-05] MEDS ORDERED: Potassium Chloride 25 MEQ Effervescent Tablet PO ONE (11:00)
[2017-12-05 12:57] VITALS: PULSE 66; TEMP 96.3; O2SAT 98
[2017-12-05 12:58] VITALS: BP 95/54
[2017-12-05 15:07] VITALS: RESP 18
--- NOTE | 2017-12-05 20:26 | ECG ---
Date Performed: 12/04/2017 Time Performed: 12:42:53 PTAGE: 82 years EKG: ELECTRONIC ATRIAL PACEMAKER VOLTAGE CRITERIA FOR LVH NONSPECIFIC T-WAVE ABNORMALITY ABNORMA L ECG INTERPRETATION BASED ON A DEFAULT AGE OF 40 YEARS PREVIOUS TRACING : 08/08/2017 11.42 Since the previous tracing, no significant change not ed DOCTOR: Sarah Mitchell Interpretating Date/Time 12/05/2017 20:25:06
== END 2017-12-05 15:10 | disposition home or self-care (01) ==
LOC: PHED 10:18 → PHEDA 12:58 → INTOOBSV 12:58 → PHEDA 14:29 → PH3 14:30
PROVIDERS: ADMIT Hospitalist; ATTEND Hospitalist